=== PATIENT | female | born 1960 | race Caucasian/White ===

== ENCOUNTER 2020-02-06 12:03 | Inpatient (IN) ==
[2020-02-06 13:21] LABS: Basophils # 0.1 10*3/uL (0.0-0.2); Basophils % 0.4 % (0.0-0.8); Eosinophils % 0.4 % (0.00-10.9); Hematocrit 38.3 VOL% (35.7-47.0); Hemoglobin 11.9 GM/DL (12.0-16.0); Immature Granulocytes % 0.4 %; Immature Granulocytes Absolute 0.05 #; Lymphocytes # 1.2 10*3/uL (1.4-4.0); Lymphocytes % 10.2 % (21.3-54.2); Mean Corpuscular HGB Conc 31.1 GM/DL (32-36); Mean Corpuscular Volume 95.5 FL (87-102); Mean Platelet Volume 10.7 FL (9.6-12.0); Monocytes % 4.9 % (1.7-12.7); Neutrophils % 83.7 % (38.7-73.9); Platelet Count 212 T/CUMM (130-400); Red Blood Count 4.01 MC/CUMM (3.8-5.5); Red Cell Distribution Width 13.9 % (9.3-17.3); White Blood Count 11.4 T/CUMM (4-12)
[2020-02-06] MEDS ORDERED: ASPIRIN 325 MG TABLET PO STA (13:37)
[2020-02-06 13:53] LABS: Bilirubin,Total 0.4 MG/DL (0.2-1.0); Calcium 8.9 MG/DL (8.5-10.1); Osmolality,Calculated 282.1 MOS/KG (273-304); Total Protein 6.4 G/DL (6.4-8.3)
[2020-02-06 13:58] LABS: Partial Thromboplastin Time 27.2 SECS (23.9-33.8)
[2020-02-06 15:18] LABS: Apearance,Urine CLEAR (Clear); Bilirubin,Urine Negative (Negative); Blood, Urine Small mg/dL (Negative); Glucose,Urine (UA) Negative (Negative); Ketones,Urine Negative (Negative); Nitrite,Urine Negative (Negative); Protein,Urine Negative; RBC,Urine 6 /HPF (0-4); Squamous Epithelial Cell,Urine Occasional /HPF (0-10); Urine Color Straw (Yellow); Urine Specific Gravity 1.046 (1.001-1.035); Urine Urobilinogen < 2.0 EU/DL (0.2-1.0); WBC,Urine <1 /HPF (0-6)
[2020-02-06] MEDS ORDERED: DEXTROSE 10% 250 ML BAG IV PRN (16:38)
[2020-02-06] MEDS ORDERED: GLUCAGON 1 MG VIAL IM PRN (16:38)
[2020-02-06] MEDS: ACETAMINOPHEN 325 MG TABLET PO PRN (20:13)
[2020-02-07] MEDS: ACETAMINOPHEN 325 MG TABLET PO PRN ×2 (06:23→21:44)
[2020-02-07 07:30] LABS: Basophils # 0.1 10*3/uL (0.0-0.2); Basophils % 0.6 % (0.0-0.8); Eosinophils # 0.2 10*3/uL (0.0-0.87); Eosinophils % 2.2 % (0.00-10.9); Hematocrit 38.2 VOL% (35.7-47.0); Hemoglobin 12.1 GM/DL (12.0-16.0); Immature Granulocytes % 0.4 %; Immature Granulocytes Absolute 0.03 #; Lymphocytes # 1.7 10*3/uL (1.4-4.0); Lymphocytes % 19.9 % (21.3-54.2); Mean Corpuscular HGB Conc 31.7 GM/DL (32-36); Mean Corpuscular Volume 95.3 FL (87-102); Mean Platelet Volume 10.7 FL (9.6-12.0); Monocytes % 7.2 % (1.7-12.7); Neutrophils % 69.7 % (38.7-73.9); Platelet Count 195 T/CUMM (130-400); Red Blood Count 4.01 MC/CUMM (3.8-5.5); Red Cell Distribution Width 13.7 % (9.3-17.3); White Blood Count 8.3 T/CUMM (4-12)
[2020-02-07 07:42] LABS: Albumin 2.8 G/DL (3.4-5.0); Bilirubin,Total 0.4 MG/DL (0.2-1.0); Osmolality,Calculated 277.4 MOS/KG (273-304); PT Patient Result 10.9 SECS (9.8-11.9); Total Protein 6.5 G/DL (6.4-8.3)
[2020-02-07] MEDS: cefTRIAXone 1,000 MG in SYRINGE 1 EACH IV SCH (12:45)
[2020-02-07 16:08] LABS: RBC,Pleural Fluid 31469 T/CUMM
[2020-02-07 19:35] LABS: Lymphocytes,Pleural Fluid 75 %; Monocytes,Pleural Fluid 5 %; Neutrophils,Pleural Fluid 20 %
[2020-02-07] MEDS: HYDROXYCHLOROQUINE 200 MG TABLET PO SCH (21:46)
[2020-02-07] MEDS: FLECAINIDE 50 MG TABLET PO SCH (21:47)
[2020-02-07] MEDS: CETIRIZINE 10 MG TABLET PO SCH (21:47)
[2020-02-08] MEDS: ACETAMINOPHEN 325 MG TABLET PO PRN ×2 (06:01→23:43)
[2020-02-08 06:39] LABS: Basophils # 0.1 10*3/uL (0.0-0.2); Basophils % 0.6 % (0.0-0.8); Eosinophils # 0.1 10*3/uL (0.0-0.87); Eosinophils % 1.6 % (0.00-10.9); Hematocrit 38.3 VOL% (35.7-47.0); Hemoglobin 12.4 GM/DL (12.0-16.0); Immature Granulocytes % 0.4 %; Immature Granulocytes Absolute 0.03 #; Lymphocytes # 1.5 10*3/uL (1.4-4.0); Lymphocytes % 18.4 % (21.3-54.2); Mean Corpuscular HGB Conc 32.4 GM/DL (32-36); Mean Corpuscular Volume 92.7 FL (87-102); Mean Platelet Volume 10.8 FL (9.6-12.0); Monocytes % 8.1 % (1.7-12.7); Neutrophils % 70.9 % (38.7-73.9); Platelet Count 187 T/CUMM (130-400); Red Blood Count 4.13 MC/CUMM (3.8-5.5); Red Cell Distribution Width 13.6 % (9.3-17.3); White Blood Count 8.3 T/CUMM (4-12)
[2020-02-08 07:27] LABS: Alanine Aminotransferase 11 U/L (13-56); Albumin 2.8 G/DL (3.4-5.0); Alkaline Phosphatase 83 U/L (45-117); Aspartate Amino Transferase 11 U/L (0-37); Bilirubin,Total < 0.39 MG/DL (0.2-1.0); Blood Urea Nitrogen 15 MG/DL (7-18); Calcium 8.7 MG/DL (8.5-10.1); Estimated Glom Filtration Rate 95 ML/MIN; Glucose 96 MG/DL (74-106); Osmolality,Calculated 277.5 MOS/KG (273-304); Total Protein 6.5 G/DL (6.4-8.3)
[2020-02-08] MEDS: IPRATROPIUM 500 MCG/2.5 ML NEB RESP TX SCH ×4 (08:22→19:40)
[2020-02-08] MEDS: HYDROXYCHLOROQUINE 200 MG TABLET PO SCH ×2 (08:36→21:16)
[2020-02-08] MEDS: FLECAINIDE 50 MG TABLET PO SCH ×2 (08:36→21:15)
[2020-02-08] MEDS: CYANOCOBALAMIN 100 MCG TABLET PO SCH (08:36)
[2020-02-08] MEDS: POTASSIUM CHLORIDE 8 MEQ CAPSULE PO SCH (08:36)
[2020-02-08] MEDS: MAGNESIUM OXIDE 400 MG TABLET PO SCH (08:36)
[2020-02-08] MEDS: ASPIRIN EC 81 MG TABLET PO SCH (08:36)
[2020-02-08] MEDS: DILTIAZEM CD 120 MG CAPSULE PO SCH (08:36)
[2020-02-08] MEDS: MONTELUKAST 10 MG TABLET PO SCH (08:36)
[2020-02-08] MEDS: cefTRIAXone 1,000 MG in SYRINGE 1 EACH IV SCH (10:55)
[2020-02-08] MEDS: CETIRIZINE 10 MG TABLET PO SCH (21:16)
[2020-02-09] MEDS: ACETAMINOPHEN 325 MG TABLET PO PRN ×2 (04:11→20:48)
[2020-02-09 07:01] LABS: Basophils # 0.1 10*3/uL (0.0-0.2); Basophils % 0.6 % (0.0-0.8); Eosinophils # 0.2 10*3/uL (0.0-0.87); Eosinophils % 2.3 % (0.00-10.9); Hematocrit 38.4 VOL% (35.7-47.0); Immature Granulocytes % 0.3 %; Immature Granulocytes Absolute 0.02 #; Lymphocytes # 1.7 10*3/uL (1.4-4.0); Lymphocytes % 21.7 % (21.3-54.2); Mean Corpuscular HGB Conc 31.3 GM/DL (32-36); Mean Platelet Volume 10.5 FL (9.6-12.0); Neutrophils % 67.1 % (38.7-73.9); Platelet Count 187 T/CUMM (130-400); Red Blood Count 4.04 MC/CUMM (3.8-5.5); Red Cell Distribution Width 13.5 % (9.3-17.3); White Blood Count 7.9 T/CUMM (4-12)
[2020-02-09 07:23] LABS: Albumin 2.6 G/DL (3.4-5.0); Bilirubin,Total 0.5 MG/DL (0.2-1.0); Calcium 9.1 MG/DL (8.5-10.1); Osmolality,Calculated 279.4 MOS/KG (273-304); Total Protein 6.6 G/DL (6.4-8.3)
[2020-02-09] MEDS: IPRATROPIUM 500 MCG/2.5 ML NEB RESP TX SCH ×4 (07:25→19:28)
[2020-02-09] MEDS: POTASSIUM CHLORIDE 8 MEQ CAPSULE PO SCH (09:10)
[2020-02-09] MEDS: MAGNESIUM OXIDE 400 MG TABLET PO SCH (09:10)
[2020-02-09] MEDS: DILTIAZEM CD 120 MG CAPSULE PO SCH (09:11)
[2020-02-09] MEDS: FLECAINIDE 50 MG TABLET PO SCH ×2 (09:11→20:50)
[2020-02-09] MEDS: MONTELUKAST 10 MG TABLET PO SCH (09:11)
[2020-02-09] MEDS: HYDROXYCHLOROQUINE 200 MG TABLET PO SCH ×2 (09:11→20:48)
[2020-02-09] MEDS: CYANOCOBALAMIN 100 MCG TABLET PO SCH (09:11)
[2020-02-09] MEDS: ASPIRIN EC 81 MG TABLET PO SCH (09:11)
[2020-02-09 09:48] LABS: Alanine Aminotransferase 12 U/L (13-56); Albumin 2.6 G/DL (3.4-5.0); Alkaline Phosphatase 83 U/L (45-117); Aspartate Amino Transferase 14 U/L (0-37); Bilirubin,Direct < 0.100 MG/DL (0.0-0.20); Bilirubin,Indirect 0.3 MG/DL (0.0-1.0); Bilirubin,Total < 0.39 MG/DL (0.2-1.0); Total Protein 6.4 G/DL (6.4-8.3)
[2020-02-09] MEDS ORDERED: traMADol 50 MG TABLET PO PRN (11:50)
[2020-02-09] MEDS: cefTRIAXone 1,000 MG in SYRINGE 1 EACH IV SCH (12:12)
[2020-02-09] MEDS: METOCLOPRAMIDE 10 MG/10 ML UDCUP PO SCH ×3 (12:12→20:48)
[2020-02-09] MEDS: PANTOPRAZOLE 40 MG TABLET PO SCH (20:48)
[2020-02-09] MEDS: CETIRIZINE 10 MG TABLET PO SCH (20:49)
[2020-02-10] MEDS: ACETAMINOPHEN 325 MG TABLET PO PRN ×2 (05:45→21:42)
[2020-02-10 06:02] LABS: Basophils # 0.1 10*3/uL (0.0-0.2); Basophils % 0.8 % (0.0-0.8); Eosinophils # 0.2 10*3/uL (0.0-0.87); Hematocrit 38.8 VOL% (35.7-47.0); Hemoglobin 12.2 GM/DL (12.0-16.0); Immature Granulocytes % 0.4 %; Immature Granulocytes Absolute 0.03 #; Lymphocytes # 1.9 10*3/uL (1.4-4.0); Lymphocytes % 22.6 % (21.3-54.2); Mean Corpuscular HGB Conc 31.4 GM/DL (32-36); Mean Corpuscular Volume 94.9 FL (87-102); Neutrophils % 66.2 % (38.7-73.9); Platelet Count 205 T/CUMM (130-400); Red Blood Count 4.09 MC/CUMM (3.8-5.5); Red Cell Distribution Width 13.5 % (9.3-17.3); White Blood Count 8.4 T/CUMM (4-12)
[2020-02-10] MEDS: PANTOPRAZOLE 40 MG TABLET PO SCH ×2 (06:04→18:15)
[2020-02-10 06:29] LABS: Albumin 2.8 G/DL (3.4-5.0); Bilirubin,Total 0.7 MG/DL (0.2-1.0); Calcium 8.8 MG/DL (8.5-10.1); Osmolality,Calculated 275.7 MOS/KG (273-304); Total Protein 6.3 G/DL (6.4-8.3)
[2020-02-10] MEDS: IPRATROPIUM 500 MCG/2.5 ML NEB RESP TX SCH ×4 (06:55→19:19)
[2020-02-10 07:00] LABS: Osmolality,Calculated 273.8 MOS/KG (273-304)
[2020-02-10] MEDS: DILTIAZEM CD 120 MG CAPSULE PO SCH (08:53)
[2020-02-10] MEDS: ASPIRIN EC 81 MG TABLET PO SCH (08:53)
[2020-02-10] MEDS: METOCLOPRAMIDE 10 MG/10 ML UDCUP PO SCH ×4 (08:53→21:36)
[2020-02-10] MEDS: MAGNESIUM OXIDE 400 MG TABLET PO SCH (08:55)
[2020-02-10] MEDS: FLECAINIDE 50 MG TABLET PO SCH ×2 (08:55→21:37)
[2020-02-10] MEDS: HYDROXYCHLOROQUINE 200 MG TABLET PO SCH ×2 (08:55→21:37)
[2020-02-10] MEDS: POTASSIUM CHLORIDE 8 MEQ CAPSULE PO SCH (08:55)
[2020-02-10] MEDS: MONTELUKAST 10 MG TABLET PO SCH (08:55)
[2020-02-10] MEDS: CYANOCOBALAMIN 100 MCG TABLET PO SCH (08:56)
[2020-02-10] MEDS: cefTRIAXone 1,000 MG in SYRINGE 1 EACH IV SCH (09:54)
[2020-02-10] MEDS: CETIRIZINE 10 MG TABLET PO SCH (21:37)
[2020-02-11] MEDS: IPRATROPIUM 500 MCG/2.5 ML NEB RESP TX SCH ×3 (07:15→14:52)
[2020-02-11 08:02] LABS: Basophils # 0.1 10*3/uL (0.0-0.2); Basophils % 0.7 % (0.0-0.8); Eosinophils # 0.2 10*3/uL (0.0-0.87); Eosinophils % 2.1 % (0.00-10.9); Hematocrit 39.2 VOL% (35.7-47.0); Hemoglobin 12.6 GM/DL (12.0-16.0); Immature Granulocytes % 0.5 %; Immature Granulocytes Absolute 0.05 #; Lymphocytes # 1.7 10*3/uL (1.4-4.0); Lymphocytes % 18.5 % (21.3-54.2); Mean Corpuscular HGB Conc 32.1 GM/DL (32-36); Mean Corpuscular Volume 92.9 FL (87-102); Mean Platelet Volume 11.2 FL (9.6-12.0); Monocytes % 6.7 % (1.7-12.7); Neutrophils % 71.5 % (38.7-73.9); Platelet Count 232 T/CUMM (130-400); Red Blood Count 4.22 MC/CUMM (3.8-5.5); Red Cell Distribution Width 13.8 % (9.3-17.3); White Blood Count 9.2 T/CUMM (4-12)
[2020-02-11] MEDS: METOCLOPRAMIDE 10 MG/10 ML UDCUP PO SCH ×3 (08:14→16:37)
[2020-02-11] MEDS: MONTELUKAST 10 MG TABLET PO SCH (08:15)
[2020-02-11] MEDS: DILTIAZEM CD 120 MG CAPSULE PO SCH (08:15)
[2020-02-11] MEDS: CYANOCOBALAMIN 100 MCG TABLET PO SCH (08:15)
[2020-02-11] MEDS: FLECAINIDE 50 MG TABLET PO SCH (08:15)
[2020-02-11] MEDS: HYDROXYCHLOROQUINE 200 MG TABLET PO SCH (08:15)
[2020-02-11] MEDS: ASPIRIN EC 81 MG TABLET PO SCH (08:15)
[2020-02-11] MEDS: POTASSIUM CHLORIDE 8 MEQ CAPSULE PO SCH (08:16)
[2020-02-11] MEDS: MAGNESIUM OXIDE 400 MG TABLET PO SCH (08:16)
[2020-02-11 08:17] LABS: Calcium 9.4 MG/DL (8.5-10.1); Osmolality,Calculated 273.8 MOS/KG (273-304)
[2020-02-11] MEDS ORDERED: PANTOPRAZOLE 40 MG TABLET PO SCH (09:00)
[2020-02-11] MEDS: cefTRIAXone 1,000 MG in SYRINGE 1 EACH IV SCH (09:34)
[2020-02-11 15:42] VITALS: BP 100/59
== END 2020-02-11 18:22 | disposition home or self-care (01) | DRG 281 ==
LOC: N.EDINP 12:03 → N.ED 12:03 → N.TELEN 17:44 → SUATTDRO 02-07 14:58
PROVIDERS: ADMIT Internal Medicine; ATTEND Internal Medicine Geriatric Medicine
PROC: IRTHORA (2020-02-07 10:30)

== ENCOUNTER 2020-03-19 18:02 | Inpatient (IN) ==
[2020-03-19] MEDS ORDERED: SODIUM CHLORIDE 0.9% 1,000 ML IV STA (18:57)
[2020-03-19] MEDS ORDERED: ONDANSETRON 4 MG/2 ML VIAL IV STA (18:57)
[2020-03-19 19:10] LABS: Basophils # 0.2 10*3/uL (0.0-0.2); Basophils % 0.4 % (0.0-0.8); Eosinophils # 0.1 10*3/uL (0.0-0.87); Eosinophils % 0.2 % (0.00-10.9); Hematocrit 35.2 VOL% (35.7-47.0); Immature Granulocytes % 16.8 %; Immature Granulocytes Absolute 6.84 #; Lymphocytes # 1.5 10*3/uL (1.4-4.0); Lymphocytes % 3.6 % (21.3-54.2); Mean Corpuscular HGB Conc 31.3 GM/DL (32-36); Mean Corpuscular Volume 91.2 FL (87-102); Mean Platelet Volume 11.4 FL (9.6-12.0); Monocytes % 1.2 % (1.7-12.7); Neutrophils % 77.8 % (38.7-73.9); Platelet Count 279 T/CUMM (130-400); Red Blood Count 3.86 MC/CUMM (3.8-5.5); Red Cell Distribution Width 13.6 % (9.3-17.3)
[2020-03-19 19:11] LABS: White Blood Count 40.7 T/CUMM (4-12)
[2020-03-19 19:22] LABS: Alanine Aminotransferase 22 U/L (13-56); Albumin 3.2 G/DL (3.4-5.0); Alkaline Phosphatase 136 U/L (45-117); Aspartate Amino Transferase 21 U/L (0-37); Bilirubin,Total < 0.39 MG/DL (0.2-1.0); Blood Urea Nitrogen 20 MG/DL (7-18); Calcium 9.1 MG/DL (8.5-10.1); Estimated Glom Filtration Rate 92 ML/MIN; Glucose 105 MG/DL (74-106); Osmolality,Calculated 270.2 MOS/KG (273-304)
[2020-03-19] MEDS ORDERED: MORPHINE 4 MG/1 ML VIAL IV STA (19:29)
[2020-03-19 19:52] LABS: Band Neutrophils 5 % (0-10); Hypochromasia 2+; Lymphocytes 5 % (20-55); Macrocytosis Slight; Metamyelocytes 3 %; Segmented Neutrophils 86 % (50-85); Total Cells Counted 100
[2020-03-19 19:53] LABS: Hypersegmented Neutrophil 1+; Platelet Estimate Normal
[2020-03-19 19:57] LABS: Apearance,Urine CLOUDY (Clear); Bilirubin,Urine Negative (Negative); Blood, Urine Small mg/dL (Negative); Glucose,Urine (UA) Negative (Negative); Ketones,Urine 5 mg/dL (Negative); Mucus,Urine Occasional /LPF (Occasional); Nitrite,Urine Negative (Negative); Protein,Urine Negative; RBC,Urine 7 /HPF (0-4); Squamous Epithelial Cell,Urine Occasional /HPF (0-10); Urine Color Yellow (Yellow); Urine Urobilinogen < 2.0 EU/DL (0.2-1.0); WBC,Urine 4 /HPF (0-6)
[2020-03-19] MEDS ORDERED: PIPERACILLIN/TAZOBACTAM 3,375 MG in SODIUM CHLORIDE 0.9% 100 ML IV STA (20:11)
[2020-03-19 20:52] LABS: Basophils # 0.1 10*3/uL (0.0-0.2); Basophils % 0.3 % (0.0-0.8); Eosinophils # 0.1 10*3/uL (0.0-0.87); Eosinophils % 0.2 % (0.00-10.9); Hematocrit 29.6 VOL% (35.7-47.0); Hemoglobin 9.2 GM/DL (12.0-16.0); Immature Granulocytes Absolute 7.15 #; Lymphocytes # 1.4 10*3/uL (1.4-4.0); Mean Corpuscular HGB Conc 31.1 GM/DL (32-36); Mean Corpuscular Volume 92.5 FL (87-102); Mean Platelet Volume 10.7 FL (9.6-12.0); Monocytes % 1.4 % (1.7-12.7); Neutrophils % 74.1 % (38.7-73.9); Platelet Count 227 T/CUMM (130-400); Red Cell Distribution Width 13.6 % (9.3-17.3); White Blood Count 35.7 T/CUMM (4-12)
[2020-03-19] MEDS ORDERED: GABAPENTIN 100 MG CAPSULE PO PRN (21:38)
[2020-03-19 21:43] LABS: Band Neutrophils 8 % (0-10); Lymphocytes 2 % (20-55); Metamyelocytes 4 %; Myelocytes 1 %; Segmented Neutrophils 83 % (50-85); Total Cells Counted 100
[2020-03-19 21:44] LABS: Hypochromasia 2+; Macrocytosis Slight
[2020-03-19 21:48] LABS: Platelet Estimate Normal
[2020-03-19] MEDS ORDERED: ONDANSETRON 4 MG/2 ML VIAL IV ONE (22:44)
[2020-03-19] MEDS ORDERED: PROMETHAZINE 25 MG/1 ML VIAL IM PRN (22:58)
[2020-03-19] MEDS ORDERED: ONDANSETRON 4 MG/2 ML VIAL IV PRN (22:58)
[2020-03-19] MEDS: FLECAINIDE 50 MG TABLET PO SCH (23:50)
[2020-03-19] MEDS: CETIRIZINE 10 MG TABLET PO SCH (23:51)
[2020-03-19] MEDS: ENOXAPARIN 40 MG/0.4 ML SYRINGE SUBCUT SCH (23:51)
[2020-03-19] MEDS: SODIUM CHLORIDE 0.9% 1,000 ML IV SCH (23:54)
[2020-03-20] MEDS: ACETAMINOPHEN 325 MG TABLET PO PRN ×3 (02:24→17:30)
[2020-03-20 03:24] LABS: Basophils # 0.2 10*3/uL (0.0-0.2); Basophils % 0.5 % (0.0-0.8); Eosinophils # 0.1 10*3/uL (0.0-0.87); Eosinophils % 0.4 % (0.00-10.9); Hematocrit 28.8 VOL% (35.7-47.0); Immature Granulocytes % 25.4 %; Lymphocytes # 2.7 10*3/uL (1.4-4.0); Lymphocytes % 7.4 % (21.3-54.2); Mean Corpuscular HGB Conc 31.3 GM/DL (32-36); Mean Corpuscular Volume 92.6 FL (87-102); Monocytes % 1.8 % (1.7-12.7); Neutrophils % 64.5 % (38.7-73.9); Platelet Count 240 T/CUMM (130-400); Red Blood Count 3.11 MC/CUMM (3.8-5.5); Red Cell Distribution Width 13.7 % (9.3-17.3); White Blood Count 35.9 T/CUMM (4-12)
[2020-03-20 03:38] LABS: Calcium 8.6 MG/DL (8.5-10.1); Osmolality,Calculated 277.5 MOS/KG (273-304)
[2020-03-20 04:13] LABS: Band Neutrophils 7 % (0-10); Hypochromasia Slight; Lymphocytes 6 % (20-55); Microcytosis Slight; Platelet Estimate Normal; Segmented Neutrophils 86 % (50-85); Total Cells Counted 100
[2020-03-20] MEDS: IPRATROPIUM 500 MCG/2.5 ML NEB RESP TX SCH ×4 (08:34→19:08)
[2020-03-20] MEDS: FLECAINIDE 50 MG TABLET PO SCH ×2 (09:01→20:42)
[2020-03-20] MEDS: CYANOCOBALAMIN 100 MCG TABLET PO SCH (09:01)
[2020-03-20] MEDS: MAGNESIUM OXIDE 400 MG TABLET PO SCH (09:01)
[2020-03-20] MEDS: POTASSIUM CHLORIDE 8 MEQ CAPSULE PO SCH (09:01)
[2020-03-20] MEDS: MONTELUKAST 10 MG TABLET PO SCH (09:01)
[2020-03-20] MEDS: POLYETHYLENE GLYCOL POWDER 17 GM PACK PO SCH (09:02)
[2020-03-20] MEDS: DILTIAZEM CD 120 MG CAPSULE PO SCH (09:02)
[2020-03-20] MEDS: METOCLOPRAMIDE 10 MG/10 ML UDCUP PO SCH ×4 (09:03→20:42)
[2020-03-20] MEDS: PANTOPRAZOLE 40 MG TABLET PO SCH (09:11)
[2020-03-20] MEDS: SODIUM CHLORIDE 0.9% 1,000 ML IV SCH (12:15)
[2020-03-20] MEDS: DOCUSATE/SENNA 50-8.6 MG TABLET PO SCH (20:42)
[2020-03-20] MEDS: CETIRIZINE 10 MG TABLET PO SCH (20:42)
[2020-03-20] MEDS: ENOXAPARIN 40 MG/0.4 ML SYRINGE SUBCUT SCH (23:09)
[2020-03-21] MEDS: ACETAMINOPHEN 325 MG TABLET PO PRN ×3 (03:03→12:35)
[2020-03-21] MEDS: IPRATROPIUM 500 MCG/2.5 ML NEB RESP TX SCH ×2 (07:31→10:40)
[2020-03-21] MEDS: CYANOCOBALAMIN 100 MCG TABLET PO SCH (08:04)
[2020-03-21] MEDS: DILTIAZEM CD 120 MG CAPSULE PO SCH (08:05)
[2020-03-21] MEDS: FLECAINIDE 50 MG TABLET PO SCH (08:06)
[2020-03-21] MEDS: MAGNESIUM OXIDE 400 MG TABLET PO SCH (08:06)
[2020-03-21] MEDS: POTASSIUM CHLORIDE 8 MEQ CAPSULE PO SCH (08:06)
[2020-03-21] MEDS: METOCLOPRAMIDE 10 MG/10 ML UDCUP PO SCH ×2 (08:06→11:48)
[2020-03-21] MEDS: DOCUSATE/SENNA 50-8.6 MG TABLET PO SCH (08:06)
[2020-03-21] MEDS: MONTELUKAST 10 MG TABLET PO SCH (08:06)
[2020-03-21] MEDS: PANTOPRAZOLE 40 MG TABLET PO SCH (08:07)
[2020-03-21] MEDS: POLYETHYLENE GLYCOL POWDER 17 GM PACK PO SCH (08:07)
[2020-03-21 11:59] VITALS: BP 116/65
[2020-03-21] MEDS ORDERED: HEPARIN LOCK FLUSH 500 UNIT/5 ML SYRINGE IV ONE ×2 (13:09→13:10)
== END 2020-03-21 13:25 | disposition home or self-care (01) | DRG 247 ==
LOC: N.ED 18:02 → N.EDINP 21:37 → SUATTDRO 21:37 → N.4E 22:41
PROVIDERS: ADMIT Emergency Medicine; ATTEND Internal Medicine

== ENCOUNTER 2020-04-03 10:42 | Inpatient (IN) ==
[2020-04-03] MEDS ORDERED: SODIUM CHLORIDE 0.9% 1,000 ML IV STA (11:07)
[2020-04-03] MEDS ORDERED: HYDROmorphone 2 MG/1 ML VIAL IV STA (11:07)
[2020-04-03] MEDS ORDERED: ONDANSETRON 4 MG/2 ML VIAL IV STA (11:07)
[2020-04-03 12:01] LABS: Basophils # 0.1 10*3/uL (0.0-0.2); Basophils % 0.6 % (0.0-0.8); Eosinophils # 0.1 10*3/uL (0.0-0.87); Eosinophils % 0.6 % (0.00-10.9); Hematocrit 36.4 VOL% (35.7-47.0); Hemoglobin 11.3 GM/DL (12.0-16.0); Immature Granulocytes % 0.5 %; Immature Granulocytes Absolute 0.07 #; Lymphocytes # 1.6 10*3/uL (1.4-4.0); Lymphocytes % 11.8 % (21.3-54.2); Mean Corpuscular Volume 94.3 FL (87-102); Monocytes % 5.3 % (1.7-12.7); Neutrophils % 81.2 % (38.7-73.9); Platelet Count 290 T/CUMM (130-400); Red Blood Count 3.86 MC/CUMM (3.8-5.5); Red Cell Distribution Width 16.2 % (9.3-17.3); White Blood Count 13.5 T/CUMM (4-12)
[2020-04-03 12:22] LABS: Alanine Aminotransferase 19 U/L (13-56); Albumin 2.8 G/DL (3.4-5.0); Alkaline Phosphatase 135 U/L (45-117); Aspartate Amino Transferase 19 U/L (0-37); Bilirubin,Total < 0.39 MG/DL (0.2-1.0); Blood Urea Nitrogen 13 MG/DL (7-18); Calcium 8.8 MG/DL (8.5-10.1); Estimated Glom Filtration Rate 95 ML/MIN; Glucose 90 MG/DL (74-106); Total Protein 6.8 G/DL (6.4-8.3)
[2020-04-03 12:24] LABS: Apearance,Urine CLEAR (Clear); Bilirubin,Urine Negative (Negative); Blood, Urine Moderate mg/dL (Negative); Glucose,Urine (UA) Negative (Negative); Ketones,Urine 5 mg/dL (Negative); Mucus,Urine Few /LPF (Occasional); Nitrite,Urine Negative (Negative); Protein,Urine Negative; RBC,Urine 7 /HPF (0-4); Squamous Epithelial Cell,Urine Occasional /HPF (0-10); Urine Color Yellow (Yellow); Urine Specific Gravity 1.024 (1.001-1.035); Urine Urobilinogen < 2.0 EU/DL (0.2-1.0); WBC,Urine 1 /HPF (0-6)
[2020-04-03] MEDS: FAMOTIDINE 20 MG/2 ML VIAL IV SCH (14:42)
[2020-04-03] MEDS: SODIUM CHLORIDE 0.9% 1,000 ML IV SCH (14:42)
[2020-04-03] MEDS ORDERED: POTASSIUM CHLORIDE 20 MEQ TABLET PO ONE (16:03)
[2020-04-03] MEDS ORDERED: MAGNESIUM SULF RIDER 2 GM in PREMIX 1 EACH IV ONE (16:05)
[2020-04-03] MEDS ORDERED: CALCIUM CARBONATE CHEW 500 MG TABLET PO PRN (19:37)
[2020-04-03] MEDS: HYDROmorphone 2 MG/1 ML VIAL IV PRN (19:46)
[2020-04-03] MEDS: ONDANSETRON 4 MG/2 ML VIAL IV PRN (19:47)
[2020-04-03] MEDS: ENOXAPARIN 40 MG/0.4 ML SYRINGE SUBCUT SCH (21:59)
[2020-04-04] MEDS: HYDROmorphone 2 MG/1 ML VIAL IV PRN ×2 (02:10→12:13)
[2020-04-04] MEDS: SODIUM CHLORIDE 0.9% 1,000 ML IV SCH ×4 (02:10→23:03)
[2020-04-04] MEDS: ONDANSETRON 4 MG/2 ML VIAL IV PRN ×2 (02:11→12:18)
[2020-04-04 05:33] LABS: Alanine Aminotransferase 12 U/L (13-56); Albumin 2.5 G/DL (3.4-5.0); Alkaline Phosphatase 107 U/L (45-117); Aspartate Amino Transferase 14 U/L (0-37); Bilirubin,Total < 0.39 MG/DL (0.2-1.0); Blood Urea Nitrogen 12 MG/DL (7-18); Calcium 8.3 MG/DL (8.5-10.1); Estimated Glom Filtration Rate 105 ML/MIN; Glucose 56 MG/DL (74-106); Osmolality,Calculated 285.7 MOS/KG (273-304); Total Protein 5.7 G/DL (6.4-8.3)
[2020-04-04 06:07] LABS: Basophils # 0.1 10*3/uL (0.0-0.2); Basophils % 0.6 % (0.0-0.8); Eosinophils # 0.1 10*3/uL (0.0-0.87); Eosinophils % 0.5 % (0.00-10.9); Hematocrit 30.6 VOL% (35.7-47.0); Hemoglobin 8.9 GM/DL (12.0-16.0); Immature Granulocytes % 0.6 %; Immature Granulocytes Absolute 0.09 #; Lymphocytes # 1.5 10*3/uL (1.4-4.0); Lymphocytes % 9.2 % (21.3-54.2); Mean Corpuscular HGB Conc 29.1 GM/DL (32-36); Mean Corpuscular Volume 100.3 FL (87-102); Mean Platelet Volume 10.6 FL (9.6-12.0); Monocytes % 3.7 % (1.7-12.7); Neutrophils % 85.4 % (38.7-73.9); Platelet Count 256 T/CUMM (130-400); Red Blood Count 3.05 MC/CUMM (3.8-5.5); Red Cell Distribution Width 16.4 % (9.3-17.3); White Blood Count 15.9 T/CUMM (4-12)
[2020-04-04] MEDS: FAMOTIDINE 20 MG/2 ML VIAL IV SCH ×2 (08:57→21:34)
[2020-04-04] MEDS: LEVOFLOXACIN INJ 750 MG in PREMIX 1 EACH IV SCH (10:53)
[2020-04-04 11:23] LABS: Platelet Estimate Normal
[2020-04-04 11:24] LABS: Atypical Lymphocytes Few; Hypochromasia 1+; Polychromasia Slight
[2020-04-04] MEDS: metroNIDAZOLE INJ 500 MG in PREMIX 1 EACH IV SCH ×2 (12:53→21:37)
[2020-04-04] MEDS ORDERED: ALUM/MAG/SIMETH/LIDO VISC 1:1 30 ML BOTTLE PO PRN (13:19)
[2020-04-04] MEDS: ENOXAPARIN 40 MG/0.4 ML SYRINGE SUBCUT SCH (21:39)
[2020-04-05] MEDS: ONDANSETRON 4 MG/2 ML VIAL IV PRN ×3 (02:35→23:13)
[2020-04-05] MEDS: HYDROmorphone 2 MG/1 ML VIAL IV PRN ×3 (02:37→23:13)
[2020-04-05] MEDS: metroNIDAZOLE INJ 500 MG in PREMIX 1 EACH IV SCH ×3 (05:33→22:11)
[2020-04-05 06:49] LABS: Albumin 2.3 G/DL (3.4-5.0); Bilirubin,Total 0.4 MG/DL (0.2-1.0); Calcium 7.9 MG/DL (8.5-10.1); Osmolality,Calculated 277.1 MOS/KG (273-304); Total Protein 5.4 G/DL (6.4-8.3)
[2020-04-05 06:57] LABS: Basophils # 0.1 10*3/uL (0.0-0.2); Basophils % 0.5 % (0.0-0.8); Eosinophils # 0.1 10*3/uL (0.0-0.87); Eosinophils % 0.3 % (0.00-10.9); Hematocrit 27.1 VOL% (35.7-47.0); Hemoglobin 7.8 GM/DL (12.0-16.0); Immature Granulocytes % 0.6 %; Immature Granulocytes Absolute 0.09 #; Lymphocytes # 1.4 10*3/uL (1.4-4.0); Lymphocytes % 8.9 % (21.3-54.2); Mean Corpuscular HGB Conc 28.8 GM/DL (32-36); Mean Corpuscular Volume 98.5 FL (87-102); Mean Platelet Volume 10.7 FL (9.6-12.0); Neutrophils % 84.7 % (38.7-73.9); Platelet Count 205 T/CUMM (130-400); Red Blood Count 2.75 MC/CUMM (3.8-5.5); Red Cell Distribution Width 16.2 % (9.3-17.3); White Blood Count 15.3 T/CUMM (4-12)
[2020-04-05] MEDS ORDERED: GLUCAGON 1 MG VIAL IM PRN (07:15)
[2020-04-05] MEDS ORDERED: DEXTROSE 50% 25 GM/50 ML VIAL IV PRN (07:15)
[2020-04-05] MEDS: FAMOTIDINE 20 MG/2 ML VIAL IV SCH ×2 (08:30→20:46)
[2020-04-05] MEDS ORDERED: SODIUM PHOSPHATE ENEMA 133 ML BOTTLE RECTAL ONE (10:33)
[2020-04-05] MEDS: LEVOFLOXACIN INJ 750 MG in PREMIX 1 EACH IV SCH (11:03)
[2020-04-05] MEDS: SODIUM CHLORIDE 0.9% 1,000 ML IV SCH ×2 (11:10→22:12)
[2020-04-05] MEDS ORDERED: POLYETHYLENE GLYCOL POWDER 17 GM PACK PO PRN (11:59)
[2020-04-05] MEDS ORDERED: POLYETHYLENE GLYCOL POWDER 17 GM PACK PO SCH (13:39)
[2020-04-05] MEDS: POLYETHYLENE GLYCOL POWDER 17 GM PACK PO SCH (14:03)
[2020-04-05] MEDS: ENOXAPARIN 40 MG/0.4 ML SYRINGE SUBCUT SCH (20:45)
[2020-04-06 05:56] LABS: Basophils # 0.1 10*3/uL (0.0-0.2); Basophils % 0.6 % (0.0-0.8); Eosinophils # 0.1 10*3/uL (0.0-0.87); Eosinophils % 0.8 % (0.00-10.9); Hematocrit 26.5 VOL% (35.7-47.0); Hemoglobin 7.9 GM/DL (12.0-16.0); Immature Granulocytes % 0.6 %; Immature Granulocytes Absolute 0.05 #; Lymphocytes % 11.5 % (21.3-54.2); Mean Corpuscular HGB Conc 29.8 GM/DL (32-36); Mean Corpuscular Volume 97.8 FL (87-102); Mean Platelet Volume 10.8 FL (9.6-12.0); Neutrophils % 78.5 % (38.7-73.9); Platelet Count 185 T/CUMM (130-400); Red Blood Count 2.71 MC/CUMM (3.8-5.5); Red Cell Distribution Width 16.4 % (9.3-17.3); White Blood Count 8.7 T/CUMM (4-12)
[2020-04-06 06:07] LABS: Albumin 2.3 G/DL (3.4-5.0); Bilirubin,Total 0.7 MG/DL (0.2-1.0); Calcium 7.7 MG/DL (8.5-10.1); Osmolality,Calculated 278.1 MOS/KG (273-304); Total Protein 5.4 G/DL (6.4-8.3)
[2020-04-06] MEDS: metroNIDAZOLE INJ 500 MG in PREMIX 1 EACH IV SCH ×2 (06:19→18:32)
[2020-04-06] MEDS: SODIUM CHLORIDE 0.9% 1,000 ML IV SCH ×2 (06:46→08:20)
[2020-04-06] MEDS ORDERED: MAGNESIUM SULF RIDER 2 GM in PREMIX 1 EACH IV ONE (08:03)
[2020-04-06] MEDS ORDERED: POTASSIUM CHLORIDE INJ 40 MEQ in SODIUM CHLORIDE 0.9% 1,000 ML IV SCH (08:03)
[2020-04-06] MEDS ORDERED: POTASSIUM CHLORIDE 20 MEQ TABLET PO ONE (08:03)
[2020-04-06] MEDS: POLYETHYLENE GLYCOL POWDER 17 GM PACK PO SCH (08:20)
[2020-04-06] MEDS: FAMOTIDINE 20 MG/2 ML VIAL IV SCH ×2 (08:21→20:29)
[2020-04-06] MEDS: ONDANSETRON 4 MG/2 ML VIAL IV PRN ×2 (08:23→23:35)
[2020-04-06] MEDS ORDERED: POLYETHYLENE GLYCOL POWDER 17 GM PACK PO SCH (09:00)
[2020-04-06] MEDS: ACETAMINOPHEN 325 MG/10.15 ML UDCUP PO PRN ×2 (09:06→22:02)
[2020-04-06] MEDS: METOCLOPRAMIDE 10 MG/2 ML VIAL IV SCH ×2 (09:09→17:43)
[2020-04-06] MEDS: POTASSIUM CHLORIDE INJ 40 MEQ in DEXTROSE 5% LACTATED RINGERS 1,000 ML IV SCH ×2 (09:09→20:28)
[2020-04-06] MEDS ORDERED: CALCIUM GLUCONATE 1,000 MG in SODIUM CHLORIDE 0.9% 100 ML IV ONE (10:00)
[2020-04-06] MEDS ORDERED: POTASSIUM PHOSPHATE 15 MMOL in SODIUM CHLORIDE 0.9% 100 ML IV ONE (11:21)
[2020-04-06] MEDS: LEVOFLOXACIN INJ 750 MG in PREMIX 1 EACH IV SCH (11:22)
[2020-04-06] MEDS: ENOXAPARIN 40 MG/0.4 ML SYRINGE SUBCUT SCH (20:29)
[2020-04-06] MEDS: HYDROmorphone 2 MG/1 ML VIAL IV PRN (23:34)
[2020-04-07] MEDS: METOCLOPRAMIDE 10 MG/2 ML VIAL IV SCH ×3 (00:27→16:14)
[2020-04-07] MEDS: metroNIDAZOLE INJ 500 MG in PREMIX 1 EACH IV SCH ×3 (02:29→17:54)
[2020-04-07] MEDS: POTASSIUM CHLORIDE INJ 40 MEQ in DEXTROSE 5% LACTATED RINGERS 1,000 ML IV SCH ×3 (02:31→21:40)
[2020-04-07] MEDS: ACETAMINOPHEN 325 MG/10.15 ML UDCUP PO PRN ×2 (05:06→14:01)
[2020-04-07 06:46] LABS: Basophils % 0.4 % (0.0-0.8); Eosinophils # 0.1 10*3/uL (0.0-0.87); Eosinophils % 1.1 % (0.00-10.9); Hematocrit 26.1 VOL% (35.7-47.0); Hemoglobin 8.2 GM/DL (12.0-16.0); Immature Granulocytes % 0.4 %; Immature Granulocytes Absolute 0.03 #; Lymphocytes % 13.4 % (21.3-54.2); Mean Corpuscular HGB Conc 31.4 GM/DL (32-36); Mean Corpuscular Volume 93.2 FL (87-102); Mean Platelet Volume 10.7 FL (9.6-12.0); Monocytes % 11.1 % (1.7-12.7); Neutrophils % 73.6 % (38.7-73.9); Platelet Count 182 T/CUMM (130-400); Red Cell Distribution Width 16.6 % (9.3-17.3); White Blood Count 7.1 T/CUMM (4-12)
[2020-04-07 07:05] LABS: Albumin 2.4 G/DL (3.4-5.0); Bilirubin,Total 1.1 MG/DL (0.2-1.0); Total Protein 5.6 G/DL (6.4-8.3)
[2020-04-07] MEDS: FAMOTIDINE 20 MG/2 ML VIAL IV SCH ×2 (09:31→21:33)
[2020-04-07] MEDS: POLYETHYLENE GLYCOL POWDER 17 GM PACK PO SCH ×2 (09:35→16:14)
[2020-04-07] MEDS ORDERED: POTASSIUM CHLORIDE 20 MEQ TABLET PO ONE (11:20)
[2020-04-07] MEDS ORDERED: MAGNESIUM SULF RIDER 2 GM in PREMIX 1 EACH IV ONE (12:45)
[2020-04-07] MEDS: LEVOFLOXACIN INJ 750 MG in PREMIX 1 EACH IV SCH (12:57)
[2020-04-07] MEDS ORDERED: POLYETHYLENE GLYCOL POWDER 17 GM PACK PO SCH (21:00)
[2020-04-07] MEDS: ONDANSETRON 4 MG/2 ML VIAL IV PRN (21:36)
[2020-04-07] MEDS: HYDROmorphone 2 MG/1 ML VIAL IV PRN (21:37)
[2020-04-07] MEDS: ENOXAPARIN 40 MG/0.4 ML SYRINGE SUBCUT SCH (21:39)
[2020-04-08] MEDS: METOCLOPRAMIDE 10 MG/2 ML VIAL IV SCH ×2 (01:00→09:11)
[2020-04-08] MEDS: metroNIDAZOLE INJ 500 MG in PREMIX 1 EACH IV SCH ×2 (02:51→09:49)
[2020-04-08] MEDS: POTASSIUM CHLORIDE INJ 40 MEQ in DEXTROSE 5% LACTATED RINGERS 1,000 ML IV SCH ×2 (02:54→11:08)
[2020-04-08 06:42] LABS: Basophils % 0.3 % (0.0-0.8); Eosinophils # 0.1 10*3/uL (0.0-0.87); Eosinophils % 1.3 % (0.00-10.9); Hematocrit 29.8 VOL% (35.7-47.0); Hemoglobin 8.9 GM/DL (12.0-16.0); Immature Granulocytes % 0.6 %; Immature Granulocytes Absolute 0.06 #; Lymphocytes # 1.6 10*3/uL (1.4-4.0); Lymphocytes % 16.9 % (21.3-54.2); Mean Corpuscular HGB Conc 29.9 GM/DL (32-36); Mean Corpuscular Volume 98.3 FL (87-102); Mean Platelet Volume 10.6 FL (9.6-12.0); Monocytes % 8.4 % (1.7-12.7); Neutrophils % 72.5 % (38.7-73.9); Platelet Count 223 T/CUMM (130-400); Red Blood Count 3.03 MC/CUMM (3.8-5.5); White Blood Count 9.3 T/CUMM (4-12)
[2020-04-08 07:12] LABS: Albumin 2.5 G/DL (3.4-5.0); Bilirubin,Total 0.6 MG/DL (0.2-1.0); Calcium 8.7 MG/DL (8.5-10.1); Osmolality,Calculated 277.3 MOS/KG (273-304); Total Protein 5.9 G/DL (6.4-8.3)
[2020-04-08] MEDS: POLYETHYLENE GLYCOL POWDER 17 GM PACK PO SCH (09:08)
[2020-04-08] MEDS: FAMOTIDINE 20 MG/2 ML VIAL IV SCH (09:08)
[2020-04-08 12:09] VITALS: BP 102/59
[2020-04-08] MEDS: LEVOFLOXACIN INJ 750 MG in PREMIX 1 EACH IV SCH (12:12)
== END 2020-04-08 12:05 | disposition home health service (06) | DRG 247 ==
LOC: N.ED 10:42 → SUATTDRO 13:41 → N.EDINP 13:41 → N.4E 15:58
PROVIDERS: ADMIT Internal Medicine; ATTEND Internal Medicine

== ENCOUNTER 2020-05-15 21:37 | Observation (INO) ==
[2020-05-15] MEDS ORDERED: ONDANSETRON 4 MG/2 ML VIAL IV ONE (23:29)
[2020-05-15] MEDS ORDERED: SODIUM CHLORIDE 0.9% 1,000 ML IV STA (23:29)
[2020-05-16 00:27] LABS: Basophils # 0.1 10*3/uL (0.0-0.2); Basophils % 0.5 % (0.0-0.8); Eosinophils # 0.1 10*3/uL (0.0-0.87); Eosinophils % 0.3 % (0.00-10.9); Hemoglobin 12.2 GM/DL (12.0-16.0); Immature Granulocytes % 0.7 %; Immature Granulocytes Absolute 0.15 #; Lymphocytes # 1.6 10*3/uL (1.4-4.0); Lymphocytes % 7.3 % (21.3-54.2); Mean Corpuscular HGB Conc 31.3 GM/DL (32-36); Mean Corpuscular Volume 92.9 FL (87-102); Monocytes % 5.3 % (1.7-12.7); Neutrophils % 85.9 % (38.7-73.9); Platelet Count 268 T/CUMM (130-400); Red Cell Distribution Width 18.3 % (9.3-17.3); White Blood Count 22.4 T/CUMM (4-12)
[2020-05-16 00:45] LABS: Albumin 3.4 G/DL (3.4-5.0); Bilirubin,Total 0.4 MG/DL (0.2-1.0); Total Protein 7.4 G/DL (6.4-8.3)
[2020-05-16] MEDS ORDERED: MORPHINE 4 MG/1 ML VIAL ONE (01:25)
[2020-05-16] MEDS ORDERED: MORPHINE 4 MG/1 ML VIAL IV STA (02:00)
[2020-05-16 02:15] LABS: Band Neutrophils 1 % (0-10); Lymphocytes 7 % (20-55); Segmented Neutrophils 88 % (50-85); Total Cells Counted 100
[2020-05-16 02:16] LABS: Microcytosis Slight; Platelet Estimate Normal; Polychromasia Slight; Stomatocytes 1+
[2020-05-16 03:43] LABS: Apearance,Urine CLEAR (Clear); Bacteria,Urine Occasional /HPF (Few); Bilirubin,Urine Negative (Negative); Blood, Urine Moderate mg/dL (Negative); Glucose,Urine (UA) Negative (Negative); Ketones,Urine Negative (Negative); Mucus,Urine Many /LPF (Occasional); Nitrite,Urine Negative (Negative); Protein,Urine 30 MG/DL; RBC,Urine 6 /HPF (0-4); Squamous Epithelial Cell,Urine Occasional /HPF (0-10); Urine Color Yellow (Yellow); Urine Specific Gravity 1.031 (1.001-1.035); Urine Urobilinogen < 2.0 EU/DL (0.2-1.0); WBC,Urine 2 /HPF (0-6)
[2020-05-16] MEDS ORDERED: PIPERACILLIN/TAZOBACTAM 3,375 MG in SODIUM CHLORIDE 0.9% 100 ML IV STA (04:00)
[2020-05-16] MEDS ORDERED: MORPHINE 4 MG/1 ML VIAL IV PRN (05:04)
[2020-05-16] MEDS ORDERED: ONDANSETRON 4 MG/2 ML VIAL IV PRN (05:04)
[2020-05-16] MEDS ORDERED: PROMETHAZINE 25 MG/1 ML VIAL IM PRN (05:04)
[2020-05-16] MEDS ORDERED: GABAPENTIN 300 MG CAPSULE PO PRN (05:13)
[2020-05-16] MEDS ORDERED: MAGNESIUM SULF RIDER 2 GM in PREMIX 1 EACH IV PRN (05:17)
[2020-05-16] MEDS ORDERED: MAGNESIUM SULF RIDER 4 GM in PREMIX 1 EACH IV PRN (05:17)
[2020-05-16] MEDS: POTASSIUM CHLORIDE RIDER 10 MEQ in PREMIX 1 EACH IV PRN ×7 (06:55→22:53)
[2020-05-16] MEDS: SODIUM CHLORIDE 0.9% 1,000 ML IV SCH ×3 (06:55→20:30)
[2020-05-16] MEDS: FLECAINIDE 50 MG TABLET PO SCH ×2 (09:28→20:31)
[2020-05-16] MEDS: DILTIAZEM CD 120 MG CAPSULE PO SCH (09:29)
[2020-05-16] MEDS: CYANOCOBALAMIN 500 MCG TABLET PO SCH (09:30)
[2020-05-16] MEDS: ENOXAPARIN 40 MG/0.4 ML SYRINGE SUBCUT SCH (09:30)
[2020-05-16] MEDS: POTASSIUM CHLORIDE 8 MEQ CAPSULE PO SCH (09:30)
[2020-05-16] MEDS: MONTELUKAST 10 MG TABLET PO SCH (09:30)
[2020-05-16] MEDS: FAMOTIDINE 20 MG TABLET PO SCH ×2 (09:30→20:31)
[2020-05-16] MEDS: METOCLOPRAMIDE 10 MG/10 ML UDCUP PO SCH ×2 (09:30→20:31)
[2020-05-16] MEDS: PANTOPRAZOLE 40 MG TABLET PO SCH (09:31)
[2020-05-16] MEDS: MAGNESIUM OXIDE 400 MG TABLET PO SCH (09:31)
[2020-05-16] MEDS ORDERED: IPRATROPIUM 500 MCG/2.5 ML NEB RESP TX SCH (11:00)
[2020-05-16] MEDS: ACETAMINOPHEN 325 MG TABLET PO PRN ×2 (16:34→20:32)
[2020-05-16] MEDS: POLYETHYLENE GLYCOL POWDER 17 GM PACK PO SCH (20:31)
[2020-05-16] MEDS: CETIRIZINE 10 MG TABLET PO SCH (20:31)
[2020-05-16] MEDS: MELATONIN 3 MG TABLET PO SCH (20:52)
[2020-05-17] MEDS ORDERED: HYDROmorphone 2 MG/1 ML VIAL IV PRN
[2020-05-17] MEDS: POTASSIUM CHLORIDE RIDER 10 MEQ in PREMIX 1 EACH IV PRN (00:50)
[2020-05-17] MEDS: SODIUM CHLORIDE 0.9% 1,000 ML IV SCH ×3 (04:31→23:47)
[2020-05-17 04:36] LABS: Basophils # 0.1 10*3/uL (0.0-0.2); Basophils % 0.8 % (0.0-0.8); Eosinophils # 0.2 10*3/uL (0.0-0.87); Eosinophils % 2.2 % (0.00-10.9); Hematocrit 28.1 VOL% (35.7-47.0); Hemoglobin 8.3 GM/DL (12.0-16.0); Immature Granulocytes % 0.6 %; Immature Granulocytes Absolute 0.05 #; Lymphocytes # 1.9 10*3/uL (1.4-4.0); Lymphocytes % 21.8 % (21.3-54.2); Mean Corpuscular HGB Conc 29.5 GM/DL (32-36); Mean Corpuscular Volume 98.6 FL (87-102); Mean Platelet Volume 10.8 FL (9.6-12.0); Monocytes % 8.6 % (1.7-12.7); Platelet Count 167 T/CUMM (130-400); Red Blood Count 2.85 MC/CUMM (3.8-5.5); Red Cell Distribution Width 18.5 % (9.3-17.3); White Blood Count 8.7 T/CUMM (4-12)
[2020-05-17 05:16] LABS: Calcium 7.6 MG/DL (8.5-10.1); Osmolality,Calculated 287.6 MOS/KG (273-304)
[2020-05-17] MEDS: POTASSIUM CHLORIDE 8 MEQ CAPSULE PO SCH (09:02)
[2020-05-17] MEDS: CYANOCOBALAMIN 500 MCG TABLET PO SCH (09:02)
[2020-05-17] MEDS: FLECAINIDE 50 MG TABLET PO SCH ×2 (09:03→20:12)
[2020-05-17] MEDS: FAMOTIDINE 20 MG TABLET PO SCH ×2 (09:03→20:11)
[2020-05-17] MEDS: MONTELUKAST 10 MG TABLET PO SCH (09:03)
[2020-05-17] MEDS: DILTIAZEM CD 120 MG CAPSULE PO SCH (09:03)
[2020-05-17] MEDS: POLYETHYLENE GLYCOL POWDER 17 GM PACK PO SCH ×2 (09:04→20:11)
[2020-05-17] MEDS: PANTOPRAZOLE 40 MG TABLET PO SCH (09:04)
[2020-05-17] MEDS: ENOXAPARIN 40 MG/0.4 ML SYRINGE SUBCUT SCH (09:10)
[2020-05-17] MEDS: MAGNESIUM OXIDE 400 MG TABLET PO SCH (09:10)
[2020-05-17] MEDS: METOCLOPRAMIDE 10 MG/10 ML UDCUP PO SCH ×2 (09:13→20:12)
[2020-05-17] MEDS: MELATONIN 3 MG TABLET PO SCH (20:11)
[2020-05-17] MEDS: CETIRIZINE 10 MG TABLET PO SCH (20:12)
[2020-05-18] MEDS: SODIUM CHLORIDE 0.9% 1,000 ML IV SCH (04:32)
[2020-05-18 04:39] LABS: Basophils # 0.1 10*3/uL (0.0-0.2); Basophils % 0.7 % (0.0-0.8); Eosinophils # 0.3 10*3/uL (0.0-0.87); Eosinophils % 3.2 % (0.00-10.9); Hematocrit 30.4 VOL% (35.7-47.0); Hemoglobin 9.1 GM/DL (12.0-16.0); Immature Granulocytes % 0.7 %; Immature Granulocytes Absolute 0.07 #; Lymphocytes # 1.8 10*3/uL (1.4-4.0); Lymphocytes % 18.3 % (21.3-54.2); Mean Corpuscular HGB Conc 29.9 GM/DL (32-36); Mean Corpuscular Volume 98.7 FL (87-102); Mean Platelet Volume 10.8 FL (9.6-12.0); Monocytes % 8.6 % (1.7-12.7); Neutrophils % 68.5 % (38.7-73.9); Platelet Count 164 T/CUMM (130-400); Red Blood Count 3.08 MC/CUMM (3.8-5.5); White Blood Count 9.7 T/CUMM (4-12)
[2020-05-18 04:58] LABS: Calcium 8.5 MG/DL (8.5-10.1); Osmolality,Calculated 277.3 MOS/KG (273-304)
[2020-05-18 07:31] VITALS: BP 108/65
[2020-05-18] MEDS: DILTIAZEM CD 120 MG CAPSULE PO SCH (09:59)
[2020-05-18] MEDS: POTASSIUM CHLORIDE 8 MEQ CAPSULE PO SCH (10:00)
[2020-05-18] MEDS: ENOXAPARIN 40 MG/0.4 ML SYRINGE SUBCUT SCH (10:00)
[2020-05-18] MEDS: MAGNESIUM OXIDE 400 MG TABLET PO SCH (10:00)
[2020-05-18] MEDS: FAMOTIDINE 20 MG TABLET PO SCH (10:01)
[2020-05-18] MEDS ORDERED: HEPARIN LOCK FLUSH 500 UNIT/5 ML SYRINGE IV PRN (10:01)
[2020-05-18] MEDS: POLYETHYLENE GLYCOL POWDER 17 GM PACK PO SCH (10:01)
[2020-05-18] MEDS: METOCLOPRAMIDE 10 MG/10 ML UDCUP PO SCH (10:02)
[2020-05-18] MEDS: PANTOPRAZOLE 40 MG TABLET PO SCH (10:02)
[2020-05-18] MEDS: FLECAINIDE 50 MG TABLET PO SCH (10:02)
[2020-05-18] MEDS: CYANOCOBALAMIN 500 MCG TABLET PO SCH (10:02)
[2020-05-18] MEDS: MONTELUKAST 10 MG TABLET PO SCH (10:02)
== END 2020-05-18 10:55 | disposition home or self-care (01) ==
LOC: N.EDINP 21:37 → N.ED 21:37 → SUATTDRO 05-16 04:14 → N.EDINP 05-16 05:34 → N.4E 05-16 06:01
PROVIDERS: ADMIT Phlebology; ATTEND Internal Medicine

== ENCOUNTER 2020-07-06 11:36 | Inpatient (IN) ==
[2020-07-06] MEDS ORDERED: chlorproMAZINE 25 MG TABLET PO PRN (13:26)
[2020-07-06] MEDS ORDERED: BENZTROPINE 2 MG/2 ML AMP IV PRN (13:26)
[2020-07-06] MEDS ORDERED: chlorproMAZINE INJ 50 MG in SODIUM CHLORIDE 0.9% 100 ML IV PRN (13:26)
[2020-07-06] MEDS ORDERED: MYLANTA/LIDO VISC 2:1 300 ML BOTTLE SWISH/SWAL PRN (13:26)
[2020-07-06] MEDS ORDERED: MAGNESIUM HYDROXIDE SUSP 30 ML UDCUP PO PRN (13:26)
[2020-07-06] MEDS ORDERED: guaiFENesin 200 MG/10 ML UDCUP PO PRN (13:26)
[2020-07-06] MEDS ORDERED: chlorproMAZINE INJ 25 MG in SODIUM CHLORIDE 0.9% 100 ML IV PRN (13:26)
[2020-07-06] MEDS ORDERED: LACTULOSE 20 GM/30 ML UDCUP PO PRN (13:26)
[2020-07-06] MEDS ORDERED: LOPERAMIDE 2 MG CAPSULE PO PRN ×2 (13:26)
[2020-07-06] MEDS ORDERED: TEMAZEPAM 7.5 MG CAPSULE PO PRN (13:26)
[2020-07-06] MEDS ORDERED: ALUMINUM/MAGNES/SIMETH MAX STR 30 ML UDCUP PO PRN (13:26)
[2020-07-06] MEDS ORDERED: traMADol 50 MG TABLET PO PRN (13:26)
[2020-07-06] MEDS: SODIUM CHLORIDE 0.9% 1,000 ML IV SCH (14:20)
[2020-07-06] MEDS: ENOXAPARIN 40 MG/0.4 ML SYRINGE SUBCUT SCH (14:21)
[2020-07-06 14:23] LABS: Basophils % 0.5 % (0.0-0.8); Eosinophils % 0.1 % (0.00-10.9); Hematocrit 37.5 VOL% (35.7-47.0); Hemoglobin 11.9 GM/DL (12.0-16.0); Immature Granulocytes % 0.4 %; Immature Granulocytes Absolute 0.03 #; Lymphocytes % 13.7 % (21.3-54.2); Mean Corpuscular HGB Conc 31.7 GM/DL (32-36); Mean Corpuscular Volume 92.4 FL (87-102); Mean Platelet Volume 11.1 FL (9.6-12.0); Monocytes % 4.8 % (1.7-12.7); Neutrophils % 80.5 % (38.7-73.9); Platelet Count 205 T/CUMM (130-400); Red Blood Count 4.06 MC/CUMM (3.8-5.5); Red Cell Distribution Width 14.7 % (9.3-17.3); White Blood Count 7.5 T/CUMM (4-12)
[2020-07-06 14:50] LABS: Bilirubin,Total 0.5 MG/DL (0.2-1.0); Total Protein 6.8 G/DL (6.4-8.3)
[2020-07-06] MEDS: PROMETHAZINE INJ 25 MG in SODIUM CHLORIDE 0.9% 50 ML IV PRN (21:14)
[2020-07-06] MEDS: HYDROmorphone 2 MG/1 ML VIAL IV PRN (21:14)
[2020-07-07] MEDS: SODIUM CHLORIDE 0.9% 1,000 ML IV SCH ×2 (05:28→19:35)
[2020-07-07] MEDS: ONDANSETRON 4 MG/2 ML VIAL IV PRN ×2 (05:31→21:36)
[2020-07-07] MEDS: HYDROmorphone 2 MG/1 ML VIAL IV PRN ×2 (05:36→21:38)
[2020-07-07 06:42] LABS: Basophils % 0.5 % (0.0-0.8); Eosinophils # 0.1 10*3/uL (0.0-0.87); Eosinophils % 1.4 % (0.00-10.9); Hematocrit 34.2 VOL% (35.7-47.0); Hemoglobin 10.7 GM/DL (12.0-16.0); Immature Granulocytes % 0.3 %; Immature Granulocytes Absolute 0.02 #; Lymphocytes # 1.2 10*3/uL (1.4-4.0); Lymphocytes % 20.1 % (21.3-54.2); Mean Corpuscular HGB Conc 31.3 GM/DL (32-36); Mean Corpuscular Volume 93.4 FL (87-102); Mean Platelet Volume 11.1 FL (9.6-12.0); Neutrophils % 69.7 % (38.7-73.9); Platelet Count 189 T/CUMM (130-400); Red Blood Count 3.66 MC/CUMM (3.8-5.5); Red Cell Distribution Width 14.7 % (9.3-17.3); White Blood Count 5.9 T/CUMM (4-12)
[2020-07-07 07:00] LABS: Alanine Aminotransferase 18 U/L (13-56); Albumin 2.7 G/DL (3.4-5.0); Alkaline Phosphatase 110 U/L (45-117); Aspartate Amino Transferase 18 U/L (0-37); Bilirubin,Total < 0.39 MG/DL (0.2-1.0); Blood Urea Nitrogen 11 MG/DL (7-18); Calcium 8.8 MG/DL (8.5-10.1); Estimated Glom Filtration Rate 90 ML/MIN; Glucose 94 MG/DL (74-106); Osmolality,Calculated 273.7 MOS/KG (273-304); Total Protein 6.2 G/DL (6.4-8.3)
[2020-07-07] MEDS ORDERED: PANTOPRAZOLE 40 MG TABLET PO SCH (09:00)
[2020-07-07] MEDS: POLYETHYLENE GLYCOL POWDER 17 GM PACK PO SCH ×2 (11:37→21:27)
[2020-07-07] MEDS: FLECAINIDE 50 MG TABLET PO SCH ×2 (11:38→21:35)
[2020-07-07] MEDS: ACETAMINOPHEN 325 MG TABLET PO PRN (11:39)
[2020-07-07] MEDS: DILTIAZEM CD 120 MG CAPSULE PO SCH (11:40)
[2020-07-07] MEDS: METOCLOPRAMIDE 10 MG/10 ML UDCUP PO SCH ×2 (11:42→21:35)
[2020-07-07] MEDS: FAMOTIDINE 20 MG TABLET PO SCH ×2 (13:28→21:35)
[2020-07-07] MEDS: ENOXAPARIN 40 MG/0.4 ML SYRINGE SUBCUT SCH (14:19)
[2020-07-07] MEDS: IPRATROPIUM 500 MCG/2.5 ML NEB RESP TX SCH (16:11)
[2020-07-07] MEDS: CETIRIZINE 10 MG TABLET PO SCH (21:35)
[2020-07-07] MEDS: SIMETHICONE CHEW 125 MG TABLET PO PRN (23:36)
[2020-07-08] MEDS: IPRATROPIUM 500 MCG/2.5 ML NEB RESP TX SCH ×5 (01:00→19:31)
[2020-07-08] MEDS: ACETAMINOPHEN 325 MG TABLET PO PRN (06:27)
[2020-07-08 07:04] LABS: Basophils % 0.4 % (0.0-0.8); Eosinophils # 0.1 10*3/uL (0.0-0.87); Eosinophils % 2.4 % (0.00-10.9); Hematocrit 32.8 VOL% (35.7-47.0); Hemoglobin 10.2 GM/DL (12.0-16.0); Immature Granulocytes % 0.4 %; Immature Granulocytes Absolute 0.02 #; Lymphocytes # 1.1 10*3/uL (1.4-4.0); Lymphocytes % 24.4 % (21.3-54.2); Mean Corpuscular HGB Conc 31.1 GM/DL (32-36); Mean Corpuscular Volume 94.5 FL (87-102); Mean Platelet Volume 10.7 FL (9.6-12.0); Monocytes % 12.2 % (1.7-12.7); Neutrophils % 60.2 % (38.7-73.9); Platelet Count 146 T/CUMM (130-400); Red Blood Count 3.47 MC/CUMM (3.8-5.5); Red Cell Distribution Width 14.7 % (9.3-17.3); White Blood Count 4.5 T/CUMM (4-12)
[2020-07-08 07:35] LABS: Alanine Aminotransferase 16 U/L (13-56); Albumin 2.6 G/DL (3.4-5.0); Alkaline Phosphatase 100 U/L (45-117); Aspartate Amino Transferase 15 U/L (0-37); Bilirubin,Total < 0.39 MG/DL (0.2-1.0); Blood Urea Nitrogen 3 MG/DL (7-18); Calcium 8.3 MG/DL (8.5-10.1); Estimated Glom Filtration Rate 97 ML/MIN; Glucose 87 MG/DL (74-106); Osmolality,Calculated 276.3 MOS/KG (273-304); Total Protein 5.7 G/DL (6.4-8.3)
[2020-07-08] MEDS ORDERED: POTASSIUM CHLORIDE 20 MEQ TABLET PO PRN (07:54)
[2020-07-08] MEDS: SODIUM CHLORIDE 0.9% 1,000 ML IV SCH (09:10)
[2020-07-08] MEDS: POLYETHYLENE GLYCOL POWDER 17 GM PACK PO SCH ×2 (09:11→21:07)
[2020-07-08] MEDS: SIMETHICONE CHEW 125 MG TABLET PO PRN ×4 (09:14→23:30)
[2020-07-08] MEDS: FLECAINIDE 50 MG TABLET PO SCH ×2 (09:14→21:07)
[2020-07-08] MEDS: FAMOTIDINE 20 MG TABLET PO SCH ×2 (09:15→21:07)
[2020-07-08] MEDS: METOCLOPRAMIDE 10 MG/10 ML UDCUP PO SCH ×2 (09:15→21:07)
[2020-07-08] MEDS: DILTIAZEM CD 120 MG CAPSULE PO SCH (09:16)
[2020-07-08] MEDS: OMEPRAZOLE 40 MG PO SCH (09:16)
[2020-07-08] MEDS: POTASSIUM CHLORIDE RIDER 20 MEQ in PREMIX 1 EACH IV PRN ×2 (10:47→13:15)
[2020-07-08] MEDS: ENOXAPARIN 40 MG/0.4 ML SYRINGE SUBCUT SCH (13:15)
[2020-07-08] MEDS: ONDANSETRON 4 MG/2 ML VIAL IV PRN (19:41)
[2020-07-08] MEDS: HYDROmorphone 2 MG/1 ML VIAL IV PRN (19:41)
[2020-07-08] MEDS: CETIRIZINE 10 MG TABLET PO SCH (21:07)
[2020-07-09] MEDS: HYDROmorphone 2 MG/1 ML VIAL IV PRN ×5 (00:01→20:44)
[2020-07-09] MEDS: PROMETHAZINE INJ 25 MG in SODIUM CHLORIDE 0.9% 50 ML IV PRN ×2 (00:08→09:09)
[2020-07-09] MEDS: SODIUM CHLORIDE 0.9% 1,000 ML IV SCH ×2 (03:38→16:53)
[2020-07-09] MEDS: ONDANSETRON 4 MG/2 ML VIAL IV PRN ×4 (05:17→20:44)
[2020-07-09 06:40] LABS: Basophils % 0.4 % (0.0-0.8); Eosinophils # 0.1 10*3/uL (0.0-0.87); Eosinophils % 1.8 % (0.00-10.9); Hematocrit 36.2 VOL% (35.7-47.0); Hemoglobin 11.4 GM/DL (12.0-16.0); Immature Granulocytes % 0.5 %; Immature Granulocytes Absolute 0.04 #; Lymphocytes # 1.2 10*3/uL (1.4-4.0); Lymphocytes % 15.6 % (21.3-54.2); Mean Corpuscular HGB Conc 31.5 GM/DL (32-36); Mean Corpuscular Volume 93.8 FL (87-102); Monocytes % 8.9 % (1.7-12.7); Neutrophils % 72.8 % (38.7-73.9); Platelet Count 191 T/CUMM (130-400); Red Blood Count 3.86 MC/CUMM (3.8-5.5); Red Cell Distribution Width 14.6 % (9.3-17.3); White Blood Count 7.6 T/CUMM (4-12)
[2020-07-09 06:53] LABS: Bilirubin,Total 1.1 MG/DL (0.2-1.0); Calcium 9.1 MG/DL (8.5-10.1); Osmolality,Calculated 277.3 MOS/KG (273-304); Total Protein 6.5 G/DL (6.4-8.3)
[2020-07-09] MEDS: SIMETHICONE CHEW 125 MG TABLET PO PRN (08:29)
[2020-07-09] MEDS: METOCLOPRAMIDE 10 MG/10 ML UDCUP PO SCH ×2 (08:30→20:10)
[2020-07-09] MEDS: DILTIAZEM CD 120 MG CAPSULE PO SCH (08:30)
[2020-07-09] MEDS: POTASSIUM CHLORIDE 8 MEQ CAPSULE PO SCH (08:30)
[2020-07-09] MEDS: MONTELUKAST 10 MG TABLET PO SCH (08:30)
[2020-07-09] MEDS: CYANOCOBALAMIN 500 MCG TABLET PO SCH (08:30)
[2020-07-09] MEDS: FAMOTIDINE 20 MG TABLET PO SCH ×2 (08:30→20:10)
[2020-07-09] MEDS: POLYETHYLENE GLYCOL POWDER 17 GM PACK PO SCH ×2 (08:31→20:09)
[2020-07-09] MEDS: FLECAINIDE 50 MG TABLET PO SCH ×2 (08:31→20:10)
[2020-07-09] MEDS: MAGNESIUM OXIDE 400 MG TABLET PO SCH (08:31)
[2020-07-09] MEDS: OMEPRAZOLE 40 MG PO SCH (08:40)
[2020-07-09] MEDS ORDERED: SIMETHICONE CHEW 125 MG TABLET PO PRN (09:14)
[2020-07-09] MEDS: IPRATROPIUM 500 MCG/2.5 ML NEB RESP TX SCH ×4 (11:00→20:09)
[2020-07-09 11:50] LABS: Scl 70 Ab, IgG, S < 0.2 U
[2020-07-09] MEDS: ENOXAPARIN 40 MG/0.4 ML SYRINGE SUBCUT SCH (12:56)
[2020-07-09] MEDS: SIMETHICONE CHEW 125 MG TABLET PO SCH ×3 (13:02→20:09)
[2020-07-09] MEDS ORDERED: ALUM/MAG/SIMETH/LIDO VISC 1:1 30 ML BOTTLE PO ONE (15:43)
[2020-07-09] MEDS: CETIRIZINE 10 MG TABLET PO SCH (20:10)
[2020-07-09] MEDS ORDERED: IPRATROPIUM 500 MCG/2.5 ML NEB RESP TX PRN (20:20)
[2020-07-10] MEDS: MYLANTA/LIDO VISC 2:1 300 ML BOTTLE SWISH/SPIT PRN ×2 (00:59→05:30)
[2020-07-10] MEDS: HYDROmorphone 2 MG/1 ML VIAL IV PRN ×3 (01:07→20:52)
[2020-07-10] MEDS: ONDANSETRON 4 MG/2 ML VIAL IV PRN ×3 (01:07→20:52)
[2020-07-10] MEDS: SODIUM CHLORIDE 0.9% 1,000 ML IV SCH ×2 (06:27→20:57)
[2020-07-10] MEDS: POTASSIUM CHLORIDE 8 MEQ CAPSULE PO SCH (09:15)
[2020-07-10] MEDS: FAMOTIDINE 20 MG TABLET PO SCH (09:15)
[2020-07-10] MEDS: OMEPRAZOLE 40 MG PO SCH (09:15)
[2020-07-10] MEDS: CYANOCOBALAMIN 500 MCG TABLET PO SCH (09:15)
[2020-07-10] MEDS: SIMETHICONE CHEW 125 MG TABLET PO SCH ×3 (09:15→18:29)
[2020-07-10] MEDS: DILTIAZEM CD 120 MG CAPSULE PO SCH (09:15)
[2020-07-10] MEDS: METOCLOPRAMIDE 10 MG/10 ML UDCUP PO SCH (09:15)
[2020-07-10] MEDS: POLYETHYLENE GLYCOL POWDER 17 GM PACK PO SCH (09:15)
[2020-07-10] MEDS: MONTELUKAST 10 MG TABLET PO SCH (09:15)
[2020-07-10] MEDS: FLECAINIDE 50 MG TABLET PO SCH (09:15)
[2020-07-10] MEDS: MAGNESIUM OXIDE 400 MG TABLET PO SCH (09:15)
[2020-07-10] MEDS ORDERED: PHENOL 1.4% THROAT SPRAY 177 ML BOTTLE PO PRN (10:25)
[2020-07-10] MEDS: ALPRAZolam 0.25 MG TABLET PO PRN (13:18)
[2020-07-10] MEDS: ENOXAPARIN 40 MG/0.4 ML SYRINGE SUBCUT SCH (18:28)
[2020-07-11] MEDS: POLYETHYLENE GLYCOL POWDER 17 GM PACK PO SCH ×3 (00:42→22:25)
[2020-07-11] MEDS: SIMETHICONE CHEW 125 MG TABLET PO SCH ×5 (00:43→22:25)
[2020-07-11] MEDS: FAMOTIDINE 20 MG TABLET PO SCH ×3 (00:43→22:26)
[2020-07-11] MEDS: CETIRIZINE 10 MG TABLET PO SCH ×2 (00:43→22:26)
[2020-07-11] MEDS: METOCLOPRAMIDE 10 MG/10 ML UDCUP PO SCH ×3 (00:43→22:26)
[2020-07-11] MEDS: FLECAINIDE 50 MG TABLET PO SCH ×3 (00:43→22:26)
[2020-07-11] MEDS: HYDROmorphone 2 MG/1 ML VIAL IV PRN ×5 (01:12→22:04)
[2020-07-11] MEDS: PROMETHAZINE INJ 25 MG in SODIUM CHLORIDE 0.9% 50 ML IV PRN ×2 (01:15→21:59)
[2020-07-11 06:57] LABS: Basophils % 0.6 % (0.0-0.8); Eosinophils # 0.1 10*3/uL (0.0-0.87); Eosinophils % 1.6 % (0.00-10.9); Hematocrit 32.5 VOL% (35.7-47.0); Hemoglobin 9.8 GM/DL (12.0-16.0); Immature Granulocytes % 0.5 %; Immature Granulocytes Absolute 0.03 #; Lymphocytes # 1.1 10*3/uL (1.4-4.0); Lymphocytes % 16.7 % (21.3-54.2); Mean Corpuscular HGB Conc 30.2 GM/DL (32-36); Mean Corpuscular Volume 97.6 FL (87-102); Mean Platelet Volume 11.3 FL (9.6-12.0); Neutrophils % 73.6 % (38.7-73.9); Platelet Count 168 T/CUMM (130-400); Red Blood Count 3.33 MC/CUMM (3.8-5.5); Red Cell Distribution Width 14.5 % (9.3-17.3); White Blood Count 6.3 T/CUMM (4-12)
[2020-07-11 07:13] LABS: Albumin 2.5 G/DL (3.4-5.0); Bilirubin,Total 0.4 MG/DL (0.2-1.0); Calcium 8.4 MG/DL (8.5-10.1); Total Protein 5.7 G/DL (6.4-8.3)
[2020-07-11] MEDS: DILTIAZEM CD 120 MG CAPSULE PO SCH (08:50)
[2020-07-11] MEDS: MAGNESIUM OXIDE 400 MG TABLET PO SCH (08:50)
[2020-07-11] MEDS: POTASSIUM CHLORIDE 8 MEQ CAPSULE PO SCH (08:50)
[2020-07-11] MEDS: MONTELUKAST 10 MG TABLET PO SCH (08:51)
[2020-07-11] MEDS: OMEPRAZOLE 40 MG PO SCH (08:51)
[2020-07-11] MEDS: CYANOCOBALAMIN 500 MCG TABLET PO SCH (08:51)
[2020-07-11] MEDS: ONDANSETRON 4 MG/2 ML VIAL IV PRN ×2 (09:48→16:07)
[2020-07-11] MEDS: ENOXAPARIN 40 MG/0.4 ML SYRINGE SUBCUT SCH (14:55)
[2020-07-11] MEDS: SODIUM CHLORIDE 0.9% 1,000 ML IV SCH (14:56)
[2020-07-11] MEDS: POTASSIUM CHLORIDE RIDER 20 MEQ in PREMIX 1 EACH IV PRN ×2 (15:05→17:53)
[2020-07-12] MEDS: HYDROmorphone 2 MG/1 ML VIAL IV PRN ×3 (05:12→21:02)
[2020-07-12] MEDS: ONDANSETRON 4 MG/2 ML VIAL IV PRN ×3 (05:13→21:03)
[2020-07-12 05:25] LABS: Basophils % 0.4 % (0.0-0.8); Eosinophils # 0.1 10*3/uL (0.0-0.87); Eosinophils % 1.5 % (0.00-10.9); Immature Granulocytes % 0.3 %; Immature Granulocytes Absolute 0.02 #; Lymphocytes % 13.6 % (21.3-54.2); Mean Corpuscular HGB Conc 30.3 GM/DL (32-36); Mean Corpuscular Volume 96.2 FL (87-102); Monocytes % 8.1 % (1.7-12.7); Neutrophils % 76.1 % (38.7-73.9); Platelet Count 182 T/CUMM (130-400); Red Blood Count 3.43 MC/CUMM (3.8-5.5); Red Cell Distribution Width 14.2 % (9.3-17.3); White Blood Count 7.2 T/CUMM (4-12)
[2020-07-12 05:48] LABS: Albumin 2.5 G/DL (3.4-5.0); Bilirubin,Total 0.4 MG/DL (0.2-1.0); Calcium 8.2 MG/DL (8.5-10.1); Osmolality,Calculated 275.3 MOS/KG (273-304); Total Protein 5.4 G/DL (6.4-8.3)
[2020-07-12] MEDS ORDERED: DEXTROSE 50% 25 GM/50 ML VIAL IV ONE ×2 (06:10→06:37)
[2020-07-12] MEDS: SODIUM CHLORIDE 0.9% 1,000 ML IV SCH ×2 (07:38→12:32)
[2020-07-12] MEDS: DILTIAZEM CD 120 MG CAPSULE PO SCH (10:08)
[2020-07-12] MEDS: POTASSIUM CHLORIDE 8 MEQ CAPSULE PO SCH (10:09)
[2020-07-12] MEDS: FAMOTIDINE 20 MG TABLET PO SCH (10:09)
[2020-07-12] MEDS: POLYETHYLENE GLYCOL POWDER 17 GM PACK PO SCH (10:09)
[2020-07-12] MEDS: MAGNESIUM OXIDE 400 MG TABLET PO SCH (10:09)
[2020-07-12] MEDS: SIMETHICONE CHEW 125 MG TABLET PO SCH ×3 (10:09→17:01)
[2020-07-12] MEDS: OMEPRAZOLE 40 MG PO SCH (10:09)
[2020-07-12] MEDS: FLECAINIDE 50 MG TABLET PO SCH (10:10)
[2020-07-12] MEDS: CYANOCOBALAMIN 500 MCG TABLET PO SCH (10:10)
[2020-07-12] MEDS: METOCLOPRAMIDE 10 MG/10 ML UDCUP PO SCH (10:10)
[2020-07-12] MEDS: MONTELUKAST 10 MG TABLET PO SCH (10:10)
[2020-07-12] MEDS ORDERED: DEXTROSE 50% 25 GM/50 ML VIAL IV PRN (12:06)
[2020-07-12] MEDS: DEXTROSE 5% NACL 0.45% 1,000 ML IV SCH (12:53)
[2020-07-12] MEDS: FONDAPARINUX 2.5 MG/0.5 ML SYRINGE SUBCUT SCH (13:00)
[2020-07-12] MEDS: INSULIN LISPRO 100 UNIT/ML SUBCUT SCH (18:00)
[2020-07-12] MEDS: PROMETHAZINE INJ 25 MG in SODIUM CHLORIDE 0.9% 50 ML IV PRN (22:30)
[2020-07-13] MEDS: SIMETHICONE CHEW 125 MG TABLET PO SCH ×5 (02:23→20:45)
[2020-07-13] MEDS: POLYETHYLENE GLYCOL POWDER 17 GM PACK PO SCH ×3 (02:23→20:45)
[2020-07-13] MEDS: FAMOTIDINE 20 MG TABLET PO SCH ×3 (02:23→20:45)
[2020-07-13] MEDS: FLECAINIDE 50 MG TABLET PO SCH ×3 (02:23→20:45)
[2020-07-13] MEDS: METOCLOPRAMIDE 10 MG/10 ML UDCUP PO SCH ×3 (02:23→20:45)
[2020-07-13] MEDS: CETIRIZINE 10 MG TABLET PO SCH ×2 (02:24→20:45)
[2020-07-13] MEDS: DEXTROSE 5% NACL 0.45% 1,000 ML IV SCH (03:13)
[2020-07-13] MEDS: HYDROmorphone 2 MG/1 ML VIAL IV PRN ×3 (03:13→20:44)
[2020-07-13 06:12] LABS: Basophils % 0.5 % (0.0-0.8); Eosinophils # 0.1 10*3/uL (0.0-0.87); Eosinophils % 2.1 % (0.00-10.9); Hemoglobin 10.6 GM/DL (12.0-16.0); Immature Granulocytes % 0.2 %; Immature Granulocytes Absolute 0.01 #; Lymphocytes # 1.1 10*3/uL (1.4-4.0); Lymphocytes % 17.3 % (21.3-54.2); Mean Corpuscular HGB Conc 31.2 GM/DL (32-36); Mean Corpuscular Volume 92.9 FL (87-102); Mean Platelet Volume 11.1 FL (9.6-12.0); Monocytes % 9.7 % (1.7-12.7); Neutrophils % 70.2 % (38.7-73.9); Platelet Count 197 T/CUMM (130-400); Red Blood Count 3.66 MC/CUMM (3.8-5.5); White Blood Count 6.6 T/CUMM (4-12)
[2020-07-13 06:24] LABS: Alanine Aminotransferase < 9 U/L (13-56); Albumin 2.4 G/DL (3.4-5.0); Alkaline Phosphatase 87 U/L (45-117); Aspartate Amino Transferase 12 U/L (0-37); Bilirubin,Total < 0.39 MG/DL (0.2-1.0); Blood Urea Nitrogen 4 MG/DL (7-18); Calcium 8.6 MG/DL (8.5-10.1); Estimated Glom Filtration Rate 97 ML/MIN; Glucose 113 MG/DL (74-106); Osmolality,Calculated 276.4 MOS/KG (273-304)
[2020-07-13] MEDS: POTASSIUM CHLORIDE RIDER 20 MEQ in PREMIX 1 EACH IV PRN ×2 (08:12→11:05)
[2020-07-13] MEDS ORDERED: POTASSIUM CHLORIDE 20 MEQ TABLET PO ONE (11:02)
[2020-07-13] MEDS: INSULIN LISPRO 100 UNIT/ML SUBCUT SCH ×3 (12:17→17:17)
[2020-07-13] MEDS: MAGNESIUM OXIDE 400 MG TABLET PO SCH (12:19)
[2020-07-13] MEDS: OMEPRAZOLE 40 MG PO SCH (12:20)
[2020-07-13] MEDS: DILTIAZEM CD 120 MG CAPSULE PO SCH (12:20)
[2020-07-13] MEDS: MONTELUKAST 10 MG TABLET PO SCH (12:21)
[2020-07-13] MEDS: CYANOCOBALAMIN 500 MCG TABLET PO SCH (12:22)
[2020-07-13] MEDS: ONDANSETRON 4 MG/2 ML VIAL IV PRN (12:34)
[2020-07-13] MEDS: FONDAPARINUX 2.5 MG/0.5 ML SYRINGE SUBCUT SCH ×2 (12:58→15:30)
[2020-07-13] MEDS: DEXT 5% NACL 0.45% KCL 20 MEQ 20 MEQ/1,000 ML BAG IV SCH (13:00)
[2020-07-13] MEDS: POTASSIUM CHLORIDE 8 MEQ CAPSULE PO SCH (14:01)
[2020-07-13] MEDS: POTASSIUM CHLORIDE RIDER 10 MEQ in PREMIX 1 EACH IV PRN (14:06)
[2020-07-13] MEDS: PROMETHAZINE INJ 25 MG in SODIUM CHLORIDE 0.9% 50 ML IV PRN (20:43)
[2020-07-14] MEDS: INSULIN LISPRO 100 UNIT/ML SUBCUT SCH ×5 (00:31→18:30)
[2020-07-14] MEDS: DEXT 5% NACL 0.45% KCL 20 MEQ 20 MEQ/1,000 ML BAG IV SCH ×2 (05:51→21:13)
[2020-07-14 06:11] LABS: Calcium 8.7 MG/DL (8.5-10.1); Osmolality,Calculated 269.8 MOS/KG (273-304)
[2020-07-14] MEDS: POTASSIUM CHLORIDE RIDER 10 MEQ in PREMIX 1 EACH IV PRN ×4 (08:28→12:20)
[2020-07-14] MEDS: CYANOCOBALAMIN 500 MCG TABLET PO SCH (11:04)
[2020-07-14] MEDS: MAGNESIUM OXIDE 400 MG TABLET PO SCH (11:04)
[2020-07-14] MEDS: FAMOTIDINE 20 MG TABLET PO SCH ×2 (11:04→21:06)
[2020-07-14] MEDS: FLECAINIDE 50 MG TABLET PO SCH ×2 (11:05→21:07)
[2020-07-14] MEDS: DILTIAZEM CD 120 MG CAPSULE PO SCH (11:05)
[2020-07-14] MEDS: MONTELUKAST 10 MG TABLET PO SCH (11:05)
[2020-07-14] MEDS: METOCLOPRAMIDE 10 MG/10 ML UDCUP PO SCH ×2 (11:05→21:07)
[2020-07-14] MEDS: OMEPRAZOLE 40 MG PO SCH (11:05)
[2020-07-14] MEDS: POLYETHYLENE GLYCOL POWDER 17 GM PACK PO SCH ×2 (11:06→21:07)
[2020-07-14] MEDS: SIMETHICONE CHEW 125 MG TABLET PO SCH ×4 (11:07→21:07)
[2020-07-14] MEDS: FONDAPARINUX 2.5 MG/0.5 ML SYRINGE SUBCUT SCH (11:34)
[2020-07-14] MEDS ORDERED: POTASSIUM CHLORIDE 20 MEQ TABLET PO ONE (13:19)
[2020-07-14] MEDS: HYDROmorphone 2 MG/1 ML VIAL IV PRN (21:06)
[2020-07-14] MEDS: ONDANSETRON 4 MG/2 ML VIAL IV PRN (21:06)
[2020-07-14] MEDS: CETIRIZINE 10 MG TABLET PO SCH (21:07)
[2020-07-15 06:55] LABS: Calcium 8.8 MG/DL (8.5-10.1); Osmolality,Calculated 277.3 MOS/KG (273-304)
[2020-07-15] MEDS: MONTELUKAST 10 MG TABLET PO SCH (08:35)
[2020-07-15] MEDS: FAMOTIDINE 20 MG TABLET PO SCH ×2 (08:35→21:14)
[2020-07-15] MEDS: MAGNESIUM OXIDE 400 MG TABLET PO SCH (08:35)
[2020-07-15] MEDS: POLYETHYLENE GLYCOL POWDER 17 GM PACK PO SCH ×3 (08:36→21:14)
[2020-07-15] MEDS: DILTIAZEM CD 120 MG CAPSULE PO SCH (08:36)
[2020-07-15] MEDS: FLECAINIDE 50 MG TABLET PO SCH ×2 (08:36→21:13)
[2020-07-15] MEDS: OMEPRAZOLE 40 MG PO SCH (08:38)
[2020-07-15] MEDS: CYANOCOBALAMIN 500 MCG TABLET PO SCH (08:40)
[2020-07-15] MEDS: METOCLOPRAMIDE 10 MG/10 ML UDCUP PO SCH ×2 (08:46→21:13)
[2020-07-15] MEDS ORDERED: POTASSIUM CHLORIDE 20 MEQ TABLET PO SCH (09:00)
[2020-07-15] MEDS: DEXT 5% NACL 0.45% KCL 20 MEQ 20 MEQ/1,000 ML BAG IV SCH ×2 (11:13→22:12)
[2020-07-15] MEDS: SIMETHICONE CHEW 125 MG TABLET PO SCH ×5 (11:14→21:16)
[2020-07-15] MEDS: FONDAPARINUX 2.5 MG/0.5 ML SYRINGE SUBCUT SCH (11:16)
[2020-07-15] MEDS ORDERED: DOCUSATE SODIUM 100 MG CAPSULE PO PRN (12:24)
[2020-07-15] MEDS ORDERED: MAGNESIUM HYDROXIDE SUSP 30 ML UDCUP PO ONE (13:41)
[2020-07-15] MEDS ORDERED: POLYETHYLENE GLYCOL POWDER 17 GM PACK PO ONE (13:41)
[2020-07-15] MEDS ORDERED: POTASSIUM CHLORIDE 20 MEQ TABLET PO ONE (13:43)
[2020-07-15] MEDS ORDERED: POTASSIUM CHLORIDE 20 MEQ/15 ML UDCUP PO ONE (15:00)
[2020-07-15] MEDS: HYDROmorphone 2 MG/1 ML VIAL IV PRN ×2 (16:13→21:25)
[2020-07-15] MEDS: ONDANSETRON 4 MG/2 ML VIAL IV PRN (16:18)
[2020-07-15] MEDS: CETIRIZINE 10 MG TABLET PO SCH (21:16)
[2020-07-15] MEDS: PROMETHAZINE INJ 25 MG in SODIUM CHLORIDE 0.9% 50 ML IV PRN (22:13)
[2020-07-16] MEDS: ONDANSETRON 4 MG/2 ML VIAL IV PRN ×2 (00:20→13:20)
[2020-07-16] MEDS: DEXT 5% NACL 0.45% KCL 20 MEQ 20 MEQ/1,000 ML BAG IV SCH ×3 (01:02→20:03)
[2020-07-16] MEDS: HYDROmorphone 2 MG/1 ML VIAL IV PRN ×3 (03:46→20:04)
[2020-07-16] MEDS: PROMETHAZINE INJ 25 MG in SODIUM CHLORIDE 0.9% 50 ML IV PRN ×2 (03:47→20:04)
[2020-07-16 05:54] LABS: Calcium 9.4 MG/DL (8.5-10.1); Osmolality,Calculated 273.7 MOS/KG (273-304)
[2020-07-16] MEDS: DILTIAZEM CD 120 MG CAPSULE PO SCH (10:38)
[2020-07-16] MEDS: MAGNESIUM OXIDE 400 MG TABLET PO SCH (10:38)
[2020-07-16] MEDS: POLYETHYLENE GLYCOL POWDER 17 GM PACK PO SCH ×3 (10:39→20:02)
[2020-07-16] MEDS: FAMOTIDINE 20 MG TABLET PO SCH ×2 (10:39→20:02)
[2020-07-16] MEDS: MONTELUKAST 10 MG TABLET PO SCH (10:39)
[2020-07-16] MEDS: METOCLOPRAMIDE 10 MG/10 ML UDCUP PO SCH ×2 (10:39→20:02)
[2020-07-16] MEDS: POTASSIUM CHLORIDE 20 MEQ/15 ML UDCUP PO SCH (10:39)
[2020-07-16] MEDS: SIMETHICONE CHEW 125 MG TABLET PO SCH ×4 (10:39→20:02)
[2020-07-16] MEDS: OMEPRAZOLE 40 MG PO SCH (10:39)
[2020-07-16] MEDS: ALPRAZolam 0.25 MG TABLET PO PRN (10:40)
[2020-07-16] MEDS: FLECAINIDE 50 MG TABLET PO SCH (10:40)
[2020-07-16] MEDS: CYANOCOBALAMIN 500 MCG TABLET PO SCH (10:40)
[2020-07-16] MEDS: FONDAPARINUX 2.5 MG/0.5 ML SYRINGE SUBCUT SCH (12:34)
[2020-07-16] MEDS: CIPROFLOXACIN INJ 400 MG in PREMIX 1 EACH IV SCH (16:23)
[2020-07-16] MEDS: metroNIDAZOLE INJ 500 MG in PREMIX 1 EACH IV SCH ×2 (17:29→23:16)
[2020-07-16] MEDS: CETIRIZINE 10 MG TABLET PO SCH (20:03)
[2020-07-17] MEDS: CIPROFLOXACIN INJ 400 MG in PREMIX 1 EACH IV SCH ×2 (04:02→15:13)
[2020-07-17 05:21] LABS: Basophils % 0.4 % (0.0-0.8); Eosinophils # 0.2 10*3/uL (0.0-0.87); Eosinophils % 2.1 % (0.00-10.9); Hematocrit 29.8 VOL% (35.7-47.0); Hemoglobin 9.6 GM/DL (12.0-16.0); Immature Granulocytes % 0.3 %; Immature Granulocytes Absolute 0.03 #; Lymphocytes # 1.4 10*3/uL (1.4-4.0); Lymphocytes % 15.1 % (21.3-54.2); Mean Corpuscular HGB Conc 32.2 GM/DL (32-36); Mean Platelet Volume 10.7 FL (9.6-12.0); Monocytes % 8.2 % (1.7-12.7); Neutrophils % 73.9 % (38.7-73.9); Platelet Count 260 T/CUMM (130-400); Red Blood Count 3.24 MC/CUMM (3.8-5.5); Red Cell Distribution Width 14.6 % (9.3-17.3); White Blood Count 9.5 T/CUMM (4-12)
[2020-07-17 05:44] LABS: Calcium 8.3 MG/DL (8.5-10.1)
[2020-07-17] MEDS: metroNIDAZOLE INJ 500 MG in PREMIX 1 EACH IV SCH ×4 (06:06→22:26)
[2020-07-17 07:28] LABS: INR 1.1; PT Patient Result 11.6 SECS (9.8-11.9)
[2020-07-17] MEDS: ONDANSETRON 4 MG/2 ML VIAL IV PRN ×2 (09:35→15:14)
[2020-07-17] MEDS: HYDROmorphone 2 MG/1 ML VIAL IV PRN ×3 (09:35→20:58)
[2020-07-17 09:40] LABS: Basophils % 0.4 % (0.0-0.8); Eosinophils # 0.2 10*3/uL (0.0-0.87); Eosinophils % 1.9 % (0.00-10.9); Hematocrit 31.8 VOL% (35.7-47.0); Hemoglobin 10.2 GM/DL (12.0-16.0); Immature Granulocytes % 0.4 %; Immature Granulocytes Absolute 0.04 #; Lymphocytes # 1.2 10*3/uL (1.4-4.0); Lymphocytes % 12.2 % (21.3-54.2); Mean Corpuscular HGB Conc 32.1 GM/DL (32-36); Mean Corpuscular Volume 90.9 FL (87-102); Mean Platelet Volume 10.4 FL (9.6-12.0); Monocytes % 8.5 % (1.7-12.7); Neutrophils % 76.6 % (38.7-73.9); Platelet Count 269 T/CUMM (130-400); Red Cell Distribution Width 14.6 % (9.3-17.3); White Blood Count 9.8 T/CUMM (4-12)
[2020-07-17 10:11] LABS: Calcium 8.4 MG/DL (8.5-10.1); Osmolality,Calculated 270.8 MOS/KG (273-304)
[2020-07-17] MEDS: SIMETHICONE CHEW 125 MG TABLET PO SCH ×4 (11:04→20:59)
[2020-07-17] MEDS: POLYETHYLENE GLYCOL POWDER 17 GM PACK PO SCH ×3 (11:04→20:59)
[2020-07-17] MEDS: MAGNESIUM OXIDE 400 MG TABLET PO SCH (11:04)
[2020-07-17] MEDS: MONTELUKAST 10 MG TABLET PO SCH (11:05)
[2020-07-17] MEDS: METOCLOPRAMIDE 10 MG/10 ML UDCUP PO SCH ×2 (11:05→20:59)
[2020-07-17] MEDS: OMEPRAZOLE 40 MG PO SCH (11:05)
[2020-07-17] MEDS: POTASSIUM CHLORIDE 20 MEQ/15 ML UDCUP PO SCH (11:05)
[2020-07-17] MEDS: FAMOTIDINE 20 MG TABLET PO SCH ×2 (11:05→20:59)
[2020-07-17] MEDS: CYANOCOBALAMIN 500 MCG TABLET PO SCH (11:06)
[2020-07-17] MEDS: DEXT 5% NACL 0.45% KCL 20 MEQ 20 MEQ/1,000 ML BAG IV SCH (11:30)
[2020-07-17] MEDS: LACTATED RINGERS 1,000 ML IV SCH (11:35)
[2020-07-17] MEDS: DILTIAZEM CD 120 MG CAPSULE PO SCH (12:16)
[2020-07-17] MEDS: PROMETHAZINE INJ 25 MG in SODIUM CHLORIDE 0.9% 50 ML IV PRN (20:58)
[2020-07-17] MEDS: CETIRIZINE 10 MG TABLET PO SCH (20:59)
[2020-07-18] MEDS: HYDROmorphone 2 MG/1 ML VIAL IV PRN ×3 (03:23→21:38)
[2020-07-18] MEDS: ONDANSETRON 4 MG/2 ML VIAL IV PRN ×3 (03:23→12:23)
[2020-07-18] MEDS: CIPROFLOXACIN INJ 400 MG in PREMIX 1 EACH IV SCH ×2 (03:23→14:52)
[2020-07-18] MEDS: metroNIDAZOLE INJ 500 MG in PREMIX 1 EACH IV SCH ×3 (06:13→17:18)
[2020-07-18] MEDS: DEXT 5% NACL 0.45% KCL 20 MEQ 20 MEQ/1,000 ML BAG IV SCH ×2 (06:13→19:49)
[2020-07-18 07:43] LABS: Basophils % 0.6 % (0.0-0.8); Eosinophils # 0.2 10*3/uL (0.0-0.87); Eosinophils % 3.7 % (0.00-10.9); Hematocrit 29.6 VOL% (35.7-47.0); Hemoglobin 9.4 GM/DL (12.0-16.0); Immature Granulocytes % 0.6 %; Immature Granulocytes Absolute 0.04 #; Lymphocytes # 1.2 10*3/uL (1.4-4.0); Lymphocytes % 19.8 % (21.3-54.2); Mean Corpuscular HGB Conc 31.8 GM/DL (32-36); Mean Corpuscular Volume 92.8 FL (87-102); Monocytes % 11.5 % (1.7-12.7); Neutrophils % 63.8 % (38.7-73.9); Platelet Count 258 T/CUMM (130-400); Red Blood Count 3.19 MC/CUMM (3.8-5.5); Red Cell Distribution Width 14.5 % (9.3-17.3); White Blood Count 6.3 T/CUMM (4-12)
[2020-07-18 08:03] LABS: Calcium 8.3 MG/DL (8.5-10.1); Osmolality,Calculated 270.8 MOS/KG (273-304)
[2020-07-18] MEDS: DILTIAZEM CD 120 MG CAPSULE PO SCH (09:45)
[2020-07-18] MEDS: SIMETHICONE CHEW 125 MG TABLET PO SCH ×4 (09:46→20:48)
[2020-07-18] MEDS: POLYETHYLENE GLYCOL POWDER 17 GM PACK PO SCH ×3 (09:46→20:48)
[2020-07-18] MEDS: LACTATED RINGERS 1,000 ML IV SCH (09:46)
[2020-07-18] MEDS: MAGNESIUM OXIDE 400 MG TABLET PO SCH (09:46)
[2020-07-18] MEDS: METOCLOPRAMIDE 10 MG/10 ML UDCUP PO SCH ×2 (09:47→20:48)
[2020-07-18] MEDS: MONTELUKAST 10 MG TABLET PO SCH (09:47)
[2020-07-18] MEDS: FAMOTIDINE 20 MG TABLET PO SCH ×2 (09:47→20:48)
[2020-07-18] MEDS: POTASSIUM CHLORIDE 20 MEQ/15 ML UDCUP PO SCH (09:47)
[2020-07-18] MEDS: OMEPRAZOLE 40 MG PO SCH (09:47)
[2020-07-18] MEDS: CYANOCOBALAMIN 500 MCG TABLET PO SCH (09:48)
[2020-07-18] MEDS: PROMETHAZINE INJ 25 MG in SODIUM CHLORIDE 0.9% 50 ML IV PRN ×2 (15:47→21:37)
[2020-07-18] MEDS: CETIRIZINE 10 MG TABLET PO SCH (20:48)
[2020-07-19] MEDS: metroNIDAZOLE INJ 500 MG in PREMIX 1 EACH IV SCH ×5 (01:06→23:50)
[2020-07-19] MEDS: DEXT 5% NACL 0.45% KCL 20 MEQ 20 MEQ/1,000 ML BAG IV SCH ×2 (01:09→22:20)
[2020-07-19] MEDS: CIPROFLOXACIN INJ 400 MG in PREMIX 1 EACH IV SCH ×2 (04:40→15:26)
[2020-07-19] MEDS: ONDANSETRON 4 MG/2 ML VIAL IV PRN ×3 (06:36→16:38)
[2020-07-19 06:37] LABS: Basophils % 0.7 % (0.0-0.8); Eosinophils # 0.2 10*3/uL (0.0-0.87); Eosinophils % 2.9 % (0.00-10.9); Hemoglobin 9.1 GM/DL (12.0-16.0); Immature Granulocytes % 0.5 %; Immature Granulocytes Absolute 0.03 #; Lymphocytes # 1.1 10*3/uL (1.4-4.0); Lymphocytes % 19.4 % (21.3-54.2); Mean Corpuscular HGB Conc 31.4 GM/DL (32-36); Mean Corpuscular Volume 93.9 FL (87-102); Mean Platelet Volume 10.3 FL (9.6-12.0); Monocytes % 11.4 % (1.7-12.7); Neutrophils % 65.1 % (38.7-73.9); Platelet Count 257 T/CUMM (130-400); Red Blood Count 3.09 MC/CUMM (3.8-5.5); Red Cell Distribution Width 14.6 % (9.3-17.3); White Blood Count 5.8 T/CUMM (4-12)
[2020-07-19 07:10] LABS: Eosinophils 4 % (0-10); Lymphocytes 12 % (20-55); Nucleated Red Blood Cells 1 (0-5); Platelet Estimate Normal; Segmented Neutrophils 75 % (50-85); Total Cells Counted 100
[2020-07-19 07:11] LABS: Hypochromasia Slight
[2020-07-19] MEDS: MAGNESIUM OXIDE 400 MG TABLET PO SCH (11:25)
[2020-07-19] MEDS: DILTIAZEM CD 120 MG CAPSULE PO SCH (11:25)
[2020-07-19] MEDS: POLYETHYLENE GLYCOL POWDER 17 GM PACK PO SCH ×3 (11:25→21:30)
[2020-07-19] MEDS: POTASSIUM CHLORIDE 20 MEQ/15 ML UDCUP PO SCH (11:26)
[2020-07-19] MEDS: OMEPRAZOLE 40 MG PO SCH (11:26)
[2020-07-19] MEDS: SIMETHICONE CHEW 125 MG TABLET PO SCH ×4 (11:26→21:30)
[2020-07-19] MEDS: METOCLOPRAMIDE 10 MG/10 ML UDCUP PO SCH ×2 (11:26→21:30)
[2020-07-19] MEDS: FAMOTIDINE 20 MG TABLET PO SCH ×2 (11:26→21:30)
[2020-07-19] MEDS: CYANOCOBALAMIN 500 MCG TABLET PO SCH (11:27)
[2020-07-19] MEDS: MONTELUKAST 10 MG TABLET PO SCH (11:27)
[2020-07-19] MEDS: LACTATED RINGERS 1,000 ML IV SCH (13:14)
[2020-07-19] MEDS: CETIRIZINE 10 MG TABLET PO SCH (21:30)
[2020-07-19] MEDS: HYDROmorphone 2 MG/1 ML VIAL IV PRN (22:05)
[2020-07-19] MEDS: PROMETHAZINE INJ 25 MG in SODIUM CHLORIDE 0.9% 50 ML IV PRN (22:05)
[2020-07-20] MEDS: CIPROFLOXACIN INJ 400 MG in PREMIX 1 EACH IV SCH ×2 (04:08→16:39)
[2020-07-20] MEDS: metroNIDAZOLE INJ 500 MG in PREMIX 1 EACH IV SCH ×4 (04:22→22:25)
[2020-07-20 05:56] LABS: Basophils # 0.1 10*3/uL (0.0-0.2); Basophils % 0.8 % (0.0-0.8); Eosinophils # 0.2 10*3/uL (0.0-0.87); Eosinophils % 2.6 % (0.00-10.9); Hematocrit 30.2 VOL% (35.7-47.0); Hemoglobin 9.3 GM/DL (12.0-16.0); Immature Granulocytes % 0.3 %; Immature Granulocytes Absolute 0.02 #; Lymphocytes # 1.5 10*3/uL (1.4-4.0); Lymphocytes % 24.2 % (21.3-54.2); Mean Corpuscular HGB Conc 30.8 GM/DL (32-36); Mean Corpuscular Volume 93.8 FL (87-102); Mean Platelet Volume 10.5 FL (9.6-12.0); Neutrophils % 60.1 % (38.7-73.9); Platelet Count 278 T/CUMM (130-400); Red Blood Count 3.22 MC/CUMM (3.8-5.5); Red Cell Distribution Width 14.6 % (9.3-17.3); White Blood Count 6.1 T/CUMM (4-12)
[2020-07-20 06:23] LABS: Calcium 8.2 MG/DL (8.5-10.1); Osmolality,Calculated 279.1 MOS/KG (273-304)
[2020-07-20] MEDS ORDERED: propofoL 200 MG/20 ML VIAL IV ONE (09:00)
[2020-07-20] MEDS ORDERED: LIDOCAINE 2% 5 ML VIAL ONE (09:00)
[2020-07-20] MEDS: ONDANSETRON 4 MG/2 ML VIAL IV PRN ×2 (09:07→14:26)
[2020-07-20] MEDS: HYDROmorphone 2 MG/1 ML VIAL IV PRN ×4 (09:11→22:17)
[2020-07-20] MEDS: DILTIAZEM CD 120 MG CAPSULE PO SCH (09:59)
[2020-07-20] MEDS: MAGNESIUM OXIDE 400 MG TABLET PO SCH (09:59)
[2020-07-20] MEDS: POLYETHYLENE GLYCOL POWDER 17 GM PACK PO SCH ×3 (09:59→20:21)
[2020-07-20] MEDS: SIMETHICONE CHEW 125 MG TABLET PO SCH ×4 (09:59→20:21)
[2020-07-20] MEDS: CYANOCOBALAMIN 500 MCG TABLET PO SCH (10:00)
[2020-07-20] MEDS: POTASSIUM CHLORIDE 20 MEQ/15 ML UDCUP PO SCH (10:00)
[2020-07-20] MEDS: OMEPRAZOLE 40 MG PO SCH (10:00)
[2020-07-20] MEDS: MONTELUKAST 10 MG TABLET PO SCH (10:00)
[2020-07-20] MEDS: METOCLOPRAMIDE 10 MG/10 ML UDCUP PO SCH ×2 (10:00→20:21)
[2020-07-20] MEDS: FAMOTIDINE 20 MG TABLET PO SCH ×2 (10:00→20:21)
[2020-07-20] MEDS: LACTATED RINGERS 1,000 ML IV SCH (12:25)
[2020-07-20] MEDS: DEXT 5% NACL 0.45% KCL 20 MEQ 20 MEQ/1,000 ML BAG IV SCH (17:39)
[2020-07-20] MEDS: PROMETHAZINE INJ 25 MG in SODIUM CHLORIDE 0.9% 50 ML IV PRN ×2 (17:54→22:23)
[2020-07-20] MEDS: CETIRIZINE 10 MG TABLET PO SCH (20:21)
[2020-07-21] MEDS: PROMETHAZINE INJ 25 MG in SODIUM CHLORIDE 0.9% 50 ML IV PRN ×2 (02:52→21:19)
[2020-07-21] MEDS: HYDROmorphone 2 MG/1 ML VIAL IV PRN ×5 (02:53→21:22)
[2020-07-21] MEDS: CIPROFLOXACIN INJ 400 MG in PREMIX 1 EACH IV SCH ×3 (03:51→14:43)
[2020-07-21] MEDS: metroNIDAZOLE INJ 500 MG in PREMIX 1 EACH IV SCH ×4 (04:06→23:06)
[2020-07-21 05:04] LABS: Basophils # 0.1 10*3/uL (0.0-0.2); Basophils % 0.4 % (0.0-0.8); Eosinophils # 0.1 10*3/uL (0.0-0.87); Eosinophils % 1.2 % (0.00-10.9); Hematocrit 30.8 VOL% (35.7-47.0); Hemoglobin 9.6 GM/DL (12.0-16.0); Immature Granulocytes % 0.4 %; Immature Granulocytes Absolute 0.05 #; Lymphocytes % 9.1 % (21.3-54.2); Mean Corpuscular HGB Conc 31.2 GM/DL (32-36); Mean Corpuscular Volume 91.7 FL (87-102); Mean Platelet Volume 10.6 FL (9.6-12.0); Monocytes % 11.6 % (1.7-12.7); Neutrophils % 77.3 % (38.7-73.9); Platelet Count 305 T/CUMM (130-400); Red Blood Count 3.36 MC/CUMM (3.8-5.5); Red Cell Distribution Width 14.9 % (9.3-17.3); White Blood Count 11.3 T/CUMM (4-12)
[2020-07-21 05:40] LABS: Alanine Aminotransferase < 6 U/L (13-56); Albumin 2.3 G/DL (3.4-5.0); Alkaline Phosphatase 67 U/L (45-117); Aspartate Amino Transferase 16 U/L (0-37); Blood Urea Nitrogen 3 MG/DL (7-18); Calcium 8.2 MG/DL (8.5-10.1); Estimated Glom Filtration Rate 97 ML/MIN; Glucose 122 MG/DL (74-106); Osmolality,Calculated 272.7 MOS/KG (273-304); Total Protein 5.5 G/DL (6.4-8.3)
[2020-07-21] MEDS: ONDANSETRON 4 MG/2 ML VIAL IV PRN ×3 (08:08→16:50)
[2020-07-21] MEDS: DEXT 5% NACL 0.45% KCL 20 MEQ 20 MEQ/1,000 ML BAG IV SCH ×2 (08:11→10:56)
[2020-07-21] MEDS: DILTIAZEM CD 120 MG CAPSULE PO SCH (08:11)
[2020-07-21] MEDS: SIMETHICONE CHEW 125 MG TABLET PO SCH ×4 (08:12→20:38)
[2020-07-21] MEDS: OMEPRAZOLE 40 MG PO SCH (08:12)
[2020-07-21] MEDS: FAMOTIDINE 20 MG TABLET PO SCH ×2 (08:12→20:39)
[2020-07-21] MEDS: METOCLOPRAMIDE 10 MG/10 ML UDCUP PO SCH ×2 (08:12→20:39)
[2020-07-21] MEDS: CYANOCOBALAMIN 500 MCG TABLET PO SCH (08:12)
[2020-07-21] MEDS: POLYETHYLENE GLYCOL POWDER 17 GM PACK PO SCH ×3 (08:12→20:38)
[2020-07-21] MEDS: MAGNESIUM OXIDE 400 MG TABLET PO SCH (08:12)
[2020-07-21] MEDS: MONTELUKAST 10 MG TABLET PO SCH (08:12)
[2020-07-21] MEDS: POTASSIUM CHLORIDE 20 MEQ/15 ML UDCUP PO SCH (08:12)
[2020-07-21] MEDS: CETIRIZINE 10 MG TABLET PO SCH (20:40)
[2020-07-22] MEDS: DEXT 5% NACL 0.45% KCL 20 MEQ 20 MEQ/1,000 ML BAG IV SCH (01:24)
[2020-07-22] MEDS: PROMETHAZINE INJ 25 MG in SODIUM CHLORIDE 0.9% 50 ML IV PRN (01:24)
[2020-07-22] MEDS: HYDROmorphone 2 MG/1 ML VIAL IV PRN (01:26)
[2020-07-22] MEDS: CIPROFLOXACIN INJ 400 MG in PREMIX 1 EACH IV SCH (03:26)
[2020-07-22] MEDS: metroNIDAZOLE INJ 500 MG in PREMIX 1 EACH IV SCH (04:21)
[2020-07-22] MEDS: MAGNESIUM OXIDE 400 MG TABLET PO SCH (08:17)
[2020-07-22] MEDS: SIMETHICONE CHEW 125 MG TABLET PO SCH (08:17)
[2020-07-22] MEDS: POTASSIUM CHLORIDE 20 MEQ/15 ML UDCUP PO SCH (08:17)
[2020-07-22] MEDS: FAMOTIDINE 20 MG TABLET PO SCH (08:17)
[2020-07-22] MEDS: DILTIAZEM CD 120 MG CAPSULE PO SCH (08:17)
[2020-07-22] MEDS: MONTELUKAST 10 MG TABLET PO SCH (08:17)
[2020-07-22] MEDS: POLYETHYLENE GLYCOL POWDER 17 GM PACK PO SCH (08:18)
[2020-07-22 08:43] LABS: Basophils % 0.4 % (0.0-0.8); Eosinophils # 0.1 10*3/uL (0.0-0.87); Eosinophils % 1.1 % (0.00-10.9); Hematocrit 30.6 VOL% (35.7-47.0); Hemoglobin 9.7 GM/DL (12.0-16.0); Immature Granulocytes % 0.5 %; Immature Granulocytes Absolute 0.06 #; Lymphocytes # 0.9 10*3/uL (1.4-4.0); Lymphocytes % 8.4 % (21.3-54.2); Mean Corpuscular HGB Conc 31.7 GM/DL (32-36); Mean Corpuscular Volume 90.8 FL (87-102); Mean Platelet Volume 10.8 FL (9.6-12.0); Monocytes % 11.9 % (1.7-12.7); Neutrophils % 77.7 % (38.7-73.9); Platelet Count 295 T/CUMM (130-400); Red Blood Count 3.37 MC/CUMM (3.8-5.5); Red Cell Distribution Width 14.7 % (9.3-17.3)
[2020-07-22 09:10] LABS: Alanine Aminotransferase < 9 U/L (13-56); Albumin 2.2 G/DL (3.4-5.0); Alkaline Phosphatase 73 U/L (45-117); Aspartate Amino Transferase 12 U/L (0-37); Bilirubin,Total < 0.39 MG/DL (0.2-1.0); Blood Urea Nitrogen 5 MG/DL (7-18); Calcium 8.6 MG/DL (8.5-10.1); Estimated Glom Filtration Rate 91 ML/MIN; Glucose 109 MG/DL (74-106); Osmolality,Calculated 270.8 MOS/KG (273-304); Total Protein 5.8 G/DL (6.4-8.3)
[2020-07-22] MEDS: OMEPRAZOLE 40 MG PO SCH (10:25)
[2020-07-22] MEDS: CYANOCOBALAMIN 500 MCG TABLET PO SCH (10:26)
[2020-07-22] MEDS: METOCLOPRAMIDE 10 MG/10 ML UDCUP PO SCH (10:26)
[2020-07-22 11:57] VITALS: BP 119/74
[2020-07-22] MEDS ORDERED: HEPARIN LOCK FLUSH 500 UNIT/5 ML SYRINGE IV ONE (12:03)
== END 2020-07-22 13:15 | disposition home or self-care (01) | DRG 247 ==
LOC: N.4E → SUATTDRO 11:47
PROVIDERS: ADMIT Internal Medicine; ATTEND Internal Medicine
PROC: EGDWPEG (ICD-10-PCS; 2020-07-20 11:35)

== ENCOUNTER 2020-08-17 20:28 | Inpatient (IN) ==
[2020-08-17] MEDS ORDERED: SODIUM CHLORIDE 0.9% 1,000 ML IV STA (22:02)
[2020-08-17] MEDS ORDERED: ONDANSETRON 4 MG/2 ML VIAL IV STA (22:02)
[2020-08-17] MEDS ORDERED: HYDROmorphone 2 MG/1 ML VIAL IV STA (22:02)
[2020-08-17 22:54] LABS: Basophils % 0.5 % (0.0-0.8); Eosinophils # 0.1 10*3/uL (0.0-0.87); Eosinophils % 0.7 % (0.00-10.9); Hematocrit 41.8 VOL% (35.7-47.0); Hemoglobin 13.1 GM/DL (12.0-16.0); Immature Granulocytes % 0.4 %; Immature Granulocytes Absolute 0.03 #; Lymphocytes # 0.9 10*3/uL (1.4-4.0); Lymphocytes % 10.7 % (21.3-54.2); Mean Corpuscular HGB Conc 31.3 GM/DL (32-36); Mean Platelet Volume 10.9 FL (9.6-12.0); Monocytes % 5.9 % (1.7-12.7); Neutrophils % 81.8 % (38.7-73.9); Platelet Count 275 T/CUMM (130-400); Red Blood Count 4.75 MC/CUMM (3.8-5.5); Red Cell Distribution Width 15.9 % (9.3-17.3); White Blood Count 8.5 T/CUMM (4-12)
[2020-08-17 23:19] LABS: Alanine Aminotransferase < 6 U/L (13-56); Albumin 2.8 G/DL (3.4-5.0); Alkaline Phosphatase 112 U/L (45-117); Amylase 8 U/L (25-115); Aspartate Amino Transferase 19 U/L (0-37); Blood Urea Nitrogen 10 MG/DL (7-18); Calcium 8.7 MG/DL (8.5-10.1); Estimated Glom Filtration Rate 94 ML/MIN; Glucose 116 MG/DL (74-106); Total Protein 6.9 G/DL (6.4-8.3); Troponin I 0.136 NG/ML (0.00-0.045)
[2020-08-17] MEDS ORDERED: MAGNESIUM SULF RIDER 2 GM in PREMIX 1 EACH IV STA (23:42)
[2020-08-17] MEDS ORDERED: POTASSIUM CHLORIDE RIDER 20 MEQ in PREMIX 1 EACH IV STA ×2 (23:43→23:47)
[2020-08-17 23:53] LABS: Bacteria,Urine Occasional /HPF (Few); Bilirubin,Urine Negative (Negative); Blood, Urine Negative (Negative); Glucose,Urine (UA) Negative (Negative); Ketones,Urine 80 mg/dL (Negative); Mucus,Urine Few /LPF (Occasional); Nitrite,Urine Negative (Negative); Protein,Urine Negative; RBC,Urine 4 /HPF (0-4); Squamous Epithelial Cell,Urine Few /HPF (0-10); Urine Appearance Slightly Hazy (Clear); Urine Color Yellow (Yellow); Urine Specific Gravity 1.017 (1.001-1.035); Urine Urobilinogen < 2.0 EU/DL (0.2-1.0); WBC,Urine 9 /HPF (0-6)
[2020-08-18] MEDS ORDERED: DEXTROSE 50% 25 GM/50 ML VIAL IV PRN (00:58)
[2020-08-18] MEDS ORDERED: GLUCAGON 1 MG VIAL IM PRN (00:58)
[2020-08-18] MEDS: SODIUM CHLOR 0.45% KCL 20 MEQ 20 MEQ/1,000 ML BAG IV SCH ×3 (02:11→22:10)
[2020-08-18] MEDS: ONDANSETRON 4 MG/2 ML VIAL IV PRN ×3 (02:11→18:13)
[2020-08-18] MEDS: PROMETHAZINE 25 MG/1 ML VIAL IM PRN ×2 (03:00→22:09)
[2020-08-18] MEDS: HYDROmorphone 2 MG/1 ML VIAL IV PRN ×4 (03:01→22:09)
[2020-08-18 07:36] LABS: Calcium 8.2 MG/DL (8.5-10.1); Osmolality,Calculated 284.8 MOS/KG (273-304)
[2020-08-18] MEDS ORDERED: fentaNYL 12 MCG/HR PATCH TRANSDERM SCH (09:00)
[2020-08-19] MEDS ORDERED: PROMETHAZINE INJ 25 MG in SODIUM CHLORIDE 0.9% 50 ML IV PRN (05:11)
[2020-08-19 05:55] LABS: Basophils % 0.6 % (0.0-0.8); Eosinophils # 0.3 10*3/uL (0.0-0.87); Eosinophils % 3.8 % (0.00-10.9); Hematocrit 31.3 VOL% (35.7-47.0); Hemoglobin 9.4 GM/DL (12.0-16.0); Immature Granulocytes % 0.3 %; Immature Granulocytes Absolute 0.02 #; Lymphocytes # 1.5 10*3/uL (1.4-4.0); Lymphocytes % 21.1 % (21.3-54.2); Mean Corpuscular Volume 92.6 FL (87-102); Mean Platelet Volume 12.4 FL (9.6-12.0); Monocytes % 9.6 % (1.7-12.7); Neutrophils % 64.6 % (38.7-73.9); Platelet Count 211 T/CUMM (130-400); Red Blood Count 3.38 MC/CUMM (3.8-5.5); Red Cell Distribution Width 16.1 % (9.3-17.3); White Blood Count 7.1 T/CUMM (4-12)
[2020-08-19 06:48] LABS: Alanine Aminotransferase < 6 U/L (13-56); Alkaline Phosphatase 79 U/L (45-117); Aspartate Amino Transferase 15 U/L (0-37); Blood Urea Nitrogen 13 MG/DL (7-18); Estimated Glom Filtration Rate 104 ML/MIN; Glucose 70 MG/DL (74-106); Total Protein 5.2 G/DL (6.4-8.3)
[2020-08-19] MEDS: ONDANSETRON 4 MG/2 ML VIAL IV PRN ×2 (07:25→16:25)
[2020-08-19] MEDS: SODIUM CHLOR 0.45% KCL 20 MEQ 20 MEQ/1,000 ML BAG IV SCH ×2 (07:29→20:59)
[2020-08-19] MEDS ORDERED: POTASSIUM CHLORIDE 20 MEQ TABLET PO ONE (08:06)
[2020-08-19] MEDS ORDERED: LORazepam 2 MG/1 ML VIAL ONE (08:24)
[2020-08-19] MEDS: HYDROmorphone 2 MG/1 ML VIAL IV PRN ×3 (09:02→21:02)
[2020-08-19] MEDS ORDERED: chlorproMAZINE INJ 50 MG in SODIUM CHLORIDE 0.9% 100 ML IV PRN (09:09)
[2020-08-19] MEDS ORDERED: ALPRAZolam 0.25 MG TABLET PO PRN (09:09)
[2020-08-19] MEDS ORDERED: chlorproMAZINE INJ 25 MG in SODIUM CHLORIDE 0.9% 100 ML IV PRN (09:09)
[2020-08-19] MEDS: POTASSIUM CHLORIDE RIDER 20 MEQ in PREMIX 1 EACH IV SCH ×2 (09:53→12:00)
[2020-08-19] MEDS: PROMETHAZINE INJ 25 MG in SODIUM CHLORIDE 0.9% 50 ML IV PRN (18:16)
[2020-08-19] MEDS: LORazepam 2 MG/1 ML VIAL IV PRN (21:01)
[2020-08-20] MEDS: PROMETHAZINE INJ 25 MG in SODIUM CHLORIDE 0.9% 50 ML IV PRN (04:24)
[2020-08-20] MEDS: HYDROmorphone 2 MG/1 ML VIAL IV PRN ×2 (04:25→13:33)
[2020-08-20] MEDS: SODIUM CHLOR 0.45% KCL 20 MEQ 20 MEQ/1,000 ML BAG IV SCH ×2 (04:26→19:58)
[2020-08-20 04:57] LABS: Basophils # 0.1 10*3/uL (0.0-0.2); Basophils % 0.6 % (0.0-0.8); Eosinophils # 0.3 10*3/uL (0.0-0.87); Eosinophils % 3.3 % (0.00-10.9); Hemoglobin 10.1 GM/DL (12.0-16.0); Immature Granulocytes % 0.4 %; Immature Granulocytes Absolute 0.03 #; Lymphocytes # 1.7 10*3/uL (1.4-4.0); Lymphocytes % 19.5 % (21.3-54.2); Mean Corpuscular HGB Conc 30.6 GM/DL (32-36); Mean Corpuscular Volume 90.4 FL (87-102); Monocytes % 8.9 % (1.7-12.7); Neutrophils % 67.3 % (38.7-73.9); Platelet Count 241 T/CUMM (130-400); Red Blood Count 3.65 MC/CUMM (3.8-5.5); White Blood Count 8.5 T/CUMM (4-12)
[2020-08-20 05:18] LABS: Alanine Aminotransferase < 6 U/L (13-56); Albumin 2.1 G/DL (3.4-5.0); Alkaline Phosphatase 82 U/L (45-117); Aspartate Amino Transferase 19 U/L (0-37); Blood Urea Nitrogen 14 MG/DL (7-18); Calcium 8.1 MG/DL (8.5-10.1); Estimated Glom Filtration Rate 94 ML/MIN; Glucose 65 MG/DL (74-106); Total Protein 5.5 G/DL (6.4-8.3)
[2020-08-20] MEDS: PIPERACILLIN/TAZOBACTAM 3,375 MG in SODIUM CHLORIDE 0.9% 100 ML IV SCH ×2 (11:53→20:00)
[2020-08-20] MEDS ORDERED: fentaNYL 25 MCG/HR PATCH TRANSDERM SCH (12:00)
[2020-08-20] MEDS: LORazepam 2 MG/1 ML VIAL IV PRN (13:27)
[2020-08-20] MEDS ORDERED: SODIUM CHLORIDE 0.9% 250 ML IV ONE (16:17)
[2020-08-21] MEDS: LORazepam 2 MG/1 ML VIAL IV PRN (00:35)
[2020-08-21] MEDS: ONDANSETRON 4 MG/2 ML VIAL IV PRN ×2 (00:36→10:34)
[2020-08-21] MEDS: HYDROmorphone 2 MG/1 ML VIAL IV PRN ×2 (00:37→10:36)
[2020-08-21] MEDS: SODIUM CHLOR 0.45% KCL 20 MEQ 20 MEQ/1,000 ML BAG IV SCH (01:48)
[2020-08-21] MEDS: PIPERACILLIN/TAZOBACTAM 3,375 MG in SODIUM CHLORIDE 0.9% 100 ML IV SCH (03:00)
[2020-08-21 06:18] LABS: Basophils % 0.7 % (0.0-0.8); Eosinophils # 0.2 10*3/uL (0.0-0.87); Eosinophils % 3.9 % (0.00-10.9); Immature Granulocytes % 0.7 %; Immature Granulocytes Absolute 0.04 #; Lymphocytes # 0.8 10*3/uL (1.4-4.0); Lymphocytes % 12.8 % (21.3-54.2); Mean Corpuscular Volume 91.7 FL (87-102); Mean Platelet Volume 11.6 FL (9.6-12.0); Monocytes % 10.2 % (1.7-12.7); Neutrophils % 71.7 % (38.7-73.9); Platelet Count 222 T/CUMM (130-400); Red Blood Count 3.27 MC/CUMM (3.8-5.5); Red Cell Distribution Width 16.2 % (9.3-17.3); White Blood Count 5.9 T/CUMM (4-12)
[2020-08-21 06:54] LABS: Alanine Aminotransferase < 6 U/L (13-56); Albumin 1.9 G/DL (3.4-5.0); Alkaline Phosphatase 71 U/L (45-117); Aspartate Amino Transferase 17 U/L (0-37); Blood Urea Nitrogen 12 MG/DL (7-18); Estimated Glom Filtration Rate 94 ML/MIN; Glucose 58 MG/DL (74-106); Osmolality,Calculated 276.4 MOS/KG (273-304); Total Protein 5.1 G/DL (6.4-8.3)
[2020-08-21 11:23] VITALS: BP 109/64
== END 2020-08-21 12:06 | disposition home health service (06) | DRG 137 ==
LOC: N.EDINP 20:28 → N.ED 20:28 → N.EDINP 08-18 02:30 → N.4E 08-18 02:45
PROVIDERS: ADMIT Internal Medicine; ATTEND Internal Medicine